=== PATIENT | female | born 1965 | race Caucasian/White ===

== ENCOUNTER 2016-11-19 15:28 | Inpatient (IN) | payer OTHER ==
[2016-11-19] MEDS ORDERED: Ondansetron 4 MG/2 ML SDV IVPUSH PRN (15:48)
[2016-11-19] MEDS ORDERED: Acetaminophen 650 MG Supp RECTAL PRN (15:48)
[2016-11-19] MEDS ORDERED: Naloxone 0.4 MG/ML SDV IV PRN (15:49)
[2016-11-19] MEDS ORDERED: Iohexol 300 MG/ML 30 ML Bottle PO ONE ×2 (15:55→16:19)
[2016-11-19] MEDS ORDERED: Iohexol 647 MG/ML 10 ML SDV PO ONE (16:45)
[2016-11-19] MEDS: HYDROmorphone/Normal Saline 15 MG/30 ML PCA IV PRN (17:15)
[2016-11-19] MEDS ORDERED: Sodium Chloride 0.9% 80 ML IV ONE (18:26)
[2016-11-19] MEDS ORDERED: Sodium Chloride 0.9% 10 ML Syringe FLUSH PRN (18:26)
[2016-11-19] MEDS ORDERED: Iopamidol 612 MG/ML 150 ML Bottle IV SCH (18:30)
[2016-11-19] MEDS: Pantoprazole 40 MG Vial IV SCH (20:32)
[2016-11-19] MEDS: DULoxetine 30 MG Cap PO SCH (20:33)
[2016-11-19] MEDS: Tamsulosin 0.4 MG Cap.ER PO SCH (20:33)
[2016-11-19] MEDS: Sennosides 8.6 MG Tab PO SCH (20:34)
[2016-11-19] MEDS: Temazepam 15 MG Cap PO PRN (20:42)
[2016-11-20] MEDS: Acetaminophen 325 MG Tab PO PRN (00:30)
[2016-11-20] MEDS: Dextrose 5%-Lactated Ringers 1,000 ML IV SCH ×2 (02:37→17:12)
[2016-11-20] MEDS: Tamsulosin 0.4 MG Cap.ER PO SCH ×2 (07:28→17:03)
[2016-11-20] MEDS: DULoxetine 30 MG Cap PO SCH ×3 (09:28→20:53)
--- NOTE | 2016-11-20 09:28 | PCM.HP ---
H&P History of Present Illness - General Date of Service: 11/20/16 Admit Problem/Dx: Admission Diagnosis/Problem Admission Diagnosis/Problem Abdominal pain Source of Information: Patient History Limitations: Reports: No limitations - History of Present Illness Initial Comments - Free Text/Narative: Karishma presented to the clinic with abdominal bloating and pressure and urinary retention. Pain had increased and she developed pressure under her right rib cage. A bladder scan was done in the clinic and she had 437 mls of urine after voiding. Onset of Symptoms: Reports: gradual Improves with: Reports: None Worsens with: Reports: None Associated Symptoms: Reports: denies other symptoms Right Lower Abdomen Pain Score (Numeric/FACES): 6 - Related Data Allergies/Adverse Reactions: Allergies Allergy/AdvReac Type Severity Reaction Status Date / Time ascorbic acid Allergy Cannot Verified 09/26/16 12:56 [From [employer] Remember (iron-vit c)] celecoxib [From Celebrex] Allergy Hives Verified 09/26/16 06:04 ferrous fumarate Allergy Cannot Verified 09/26/16 06:04 [From [employer] Remember (iron-vit c)] magnesium Allergy Cannot Verified 09/26/16 06:04 Remember Sulfa (Sulfonamide Allergy Hives Verified 09/26/16 06:04 Antibiotics) sulfadiazine Allergy Hives Verified 09/26/16 06:04 zolpidem AdvReac Insomnia Verified 09/26/16 07:23 Home Medications: Home Meds Cholecalciferol (Vitamin D3) [Vitamin D3] 2,000 unit PO DAILY 08/29/14 [History] Triazolam [Halcion] 0.25 mg PO BEDTIME PRN 08/29/14 [History] Cyanocobalamin (Vitamin B-12) [Vitamin B-12] 5,000 mcg CHEW DAILY 08/31/14 [ History] Magnesium Oxide [Magnesium] 400 mg PO DAILY #100 capsule 09/04/14 [Rx] Biotin 1 mg PO DAILY 09/23/16 [History] Folic Acid 400 mg PO DAILY 09/23/16 [History] Furosemide [Lasix] 20 mg PO DAILY PRN 09/23/16 [History] Pseudoephedrine [Sudafed 12 Hour] 120 mg PO .Q12 PRN 09/23/16 [History] Vitamin B Complex [B Complex] 100 mg PO DAILY 09/23/16 [History] hydrOXYzine HCl [hydrOXYzine] 25 mg PO .Q4 PRN 09/23/16 [History] Hydrocodone/Acetaminophen [Vicodin Es 7.5-300 mg Tablet] 2 each PO QID PRN 11/19 [History] Past Medical History HEENT History: Reports: None Gastrointestinal History: Reports: Bowel obstruction, Cholelithiasis, Chronic constipation Genitourinary History: Reports: None Musculoskeletal History: Reports: Arthritis Neurological History: Reports: Other (see below) Other Neuro History: 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 Endocrine/Metabolic History: Reports: Obesity/BMI 30+ Hematologic History: Reports: B12 deficiency, Blood transfusion(s), Iron deficiency Dermatologic History: Reports: None - Infectious Disease History Infectious Disease History: Reports: Chicken pox - Past Surgical History Head Surgeries/Procedures: Reports: None HEENT Surgical History: Reports: Oral surgery GI Surgical History: Reports: Bariatric procedure, Cholecystectomy, Colonoscopy , EGD, Hernia repair/other, Small bowel, Other (see below) Other GI Surgeries/Procedures: rny revision, fistula, bowel revision 2 years Female Surgical History: Reports: Oophorectomy, Tubal ligation Endocrine Surgical History: Reports: None Neurological Surgical History: Reports: C-Spine Musculoskeletal Surgical History: Reports: Shoulder surgery Other Musculoskeletal Surgeries/Procedures:: 4 back surgerys Dermatological Surgical History: Reports: None Social & Family History - Family History Family Medical History: Noncontributory - Tobacco Use Smoking Status *Q: Never Smoker Second Hand Smoke Exposure: No - Caffeine Use Caffeine Use: Reports: Tea - Alcohol Use Days Per Week of Alcohol Use: 0 - Recreational Drug Use Recreational Drug Use: No H&P Review of Systems - Review of Systems: Review Of Systems: See Below General: Reports: malaise, weakness, fatigue HEENT: Reports: no symptoms Pulmonary: Reports: No Symptoms Cardiovascular: Reports: no symptoms Gastrointestinal: Reports: Abdominal pain Genitourinary: Reports: retention Musculoskeletal: Reports: no symptoms Skin: Reports: no symptoms Psychiatric: Reports: no symptoms Neurological: Reports: No Symptoms Hematologic/Lymphatic: Reports: no symptoms Immunologic: Reports: no symptoms Exam - Exam Exam: See Below - Vital Signs Vital Signs: Last Vital Signs Temp 98.4 F 11/20/16 07:00 Pulse 99 11/20/16 07:00 Resp 18 04/06/17 07:00 BP 89/43 L 11/20/16 07:00 Pulse Ox 99 11/20/16 07:24 Weight: 194 lb 12.8 oz - Exam Quality Assessment: urinary catheter, DVT prophylaxis General: alert, oriented HEENT: PERRLA Neck: supple, trachea midline Lungs: Clear to auscultation, Normal respiratory effort Cardiovascular: regular rate, regular rhythm Abdomen: distention, guarding, rigidity, tenderness (Female) Exam: Deferred Back Exam: normal inspection Extremities: normal inspection Skin: warm, dry, intact Neurological: cranial nerves intact Neuro Extensive - Mental Status: alert, oriented x3, normal mood/affect Neuro Extensive - Motor, Sensory, Reflexes: CN II-XII intact Psychiatric: alert, normal affect, normal mood - Patient Data Lab Results last 24 hrs: Laboratory Results - last 24 hr 11/19/16 11/19/16 11/19/16 Range/Units 15:52 15:52 15:52 WBC 15.2 H (4.5-11.0) K/uL RBC 3.42 (3.30-5.50) M/uL Hgb 9.2 L (12.0-15.0) g/dL Hct 29.5 L (36.0-48.0) % MCV 86 (80-98) fL MCH 27 (27-31) pg MCHC 31 L (32-36) % Plt Count 940 H (150-400) K/uL Sodium 139 L (140-148) mmol/L Potassium 3.5 L (3.6-5.2) mmol/L Chloride 103 (100-108) mmol/L Carbon Dioxide 29 (21-32) mmol/L Anion Gap 10.5 (5.0-14.0) mmol/L BUN 10 D (7-18) mg/dL Creatinine 0.6 (0.6-1.0) mg/dL Est Cr Clr Drug Dosing 97.57 mL/min Estimated GFR (MDRD) > 60 (>60) Glucose 111 H (74-106) mg/dL Calcium 7.9 L (8.5-10.1) mg/dL Phosphorus 3.3 (2.5-4.9) mg/dL Magnesium 1.5 L (1.8-2.4) mg/dL Total Bilirubin 0.7 (0.2-1.0) mg/dL AST 19 (15-37) U/L ALT 22 (12-78) U/L Alkaline Phosphatase 254 H D (46-116) U/L Total Protein 6.2 L (6.4-8.2) g/dL Albumin 1.6 L (3.4-5.0) g/dL Globulin 4.6 H (2.3-3.5) g/dL Albumin/Globulin Ratio 0.4 L (1.2-2.2) Urine Color Urine Appearance Urine pH (4.5-8.0) Ur Specific [place] (1.008-1.030) Urine Protein (NEGATIVE) mg/dL Urine Glucose (UA) (NEGATIVE) mg/dL Urine Ketones (NEGATIVE) mg/dL Urine Occult Blood (NEGATIVE) Urine Nitrite (NEGATIVE) Urine Bilirubin (NEGATIVE) Urine Urobilinogen (NORMAL) mg/dL Ur Leukocyte Esterase (NEGATIVE) Urine RBC (0-5) Urine WBC (0-5) Ur Epithelial Cells Amorphous Sediment Urine Bacteria Urine Mucus 11/19/16 Range/Units 17:27 WBC (4.5-11.0) K/uL RBC (3.30-5.50) M/uL Hgb (12.0-15.0) g/dL Hct (36.0-48.0) % MCV (80-98) fL MCH (27-31) pg MCHC (32-36) % Plt Count (150-400) K/uL Sodium (140-148) mmol/L Potassium (3.6-5.2) mmol/L Chloride (100-108) mmol/L Carbon Dioxide (21-32) mmol/L Anion Gap (5.0-14.0) mmol/L BUN (7-18) mg/dL Creatinine (0.6-1.0) mg/dL Est Cr Clr Drug Dosing mL/min Estimated GFR (MDRD) (>60) Glucose (74-106) mg/dL Calcium (8.5-10.1) mg/dL Phosphorus (2.5-4.9) mg/dL Magnesium (1.8-2.4) mg/dL Total Bilirubin (0.2-1.0) mg/dL AST (15-37) U/L ALT (12-78) U/L Alkaline Phosphatase (46-116) U/L Total Protein (6.4-8.2) g/dL Albumin (3.4-5.0) g/dL Globulin (2.3-3.5) g/dL Albumin/Globulin Ratio (1.2-2.2) Urine Color Yellow Urine Appearance Slightly cloudy Urine pH 6.0 (4.5-8.0) Ur Specific [place] 1.020 (1.008-1.030) Urine Protein Negative (NEGATIVE) mg/dL Urine Glucose (UA) Normal (NEGATIVE) mg/dL Urine Ketones 15 H (NEGATIVE) mg/dL Urine Occult Blood Negative (NEGATIVE) Urine Nitrite Negative (NEGATIVE) Urine Bilirubin Small (NEGATIVE) Urine Urobilinogen 4 (NORMAL) mg/dL Ur Leukocyte Esterase Negative (NEGATIVE) Urine RBC 0-5 (0-5) Urine WBC 0-5 (0-5) Ur Epithelial Cells Moderate Amorphous Sediment Not seen Urine Bacteria Moderate Urine Mucus Numerous Result Diagrams: 11/19/16 15:52 11/19/16 15:52 *Q Meaningful Use (ADM) - VTE *Q VTE Criteria *Q: - Stroke *Q Stroke Criteria *Q: - AMI *Q AMI Criteria *Q: Problem List Initiated/Reviewed/Updated: Yes Orders Last 24hrs: Active Orders 24 hr Category Date Time Status Admission Status [Patient Status] [ADT] Routine ADT 11/19/16 15:49 Active Wallace Catheter Insertion [Insert Urinary Catheter] [OM. Care 11/19/16 16:00 Ordered PC] Q24H Intake and Output [RC] QSHIFT Care 11/19/16 15:55 Active Up ad Camille [RC] ASDIRECTED Care 11/19/16 15:51 Active Urinary Catheter Assessment [RC] ASDIRECTED Care 11/19/16 15:53 Active Verify Patient Consent Obtain [RC] ASDIRECTED Care 11/20/16 07:23 Active Vital Signs [RC] Q4H Care 11/19/16 15:51 Active NPO [Nothing Per Oral Diet] [DIET] Diet 11/19/16 Dinner Active Abdomen Pelvis w Cont [CT] Urgent Exams 11/19/16 15:54 Taken CULTURE URINE [RM] Routine Lab 11/19/16 17:27 Received Acetaminophen [Tylenol] Med 11/19/16 15:48 Active 650 mg PO Q4H PRN Acetaminophen [Tylenol] Med 11/19/16 15:48 Active 650 mg RECTAL Q4H PRN DULoxetine [Cymbalta] Med 11/19/16 21:00 Active 60 mg PO BID Dextrose 5%-Lactated Ringers 1,000 ml Med 11/19/16 16:00 Active IV ASDIRECTED Furosemide [Lasix] Med 11/20/16 09:00 Active 20 mg PO DAILY HYDROmorphone/Normal Saline [Dilaudid CONSTRUCTION SUPERVISOR 15 MG in NS Med 11/19/16 15:49 Active 30 ML] 0 mg IV ASDIRECTED PRN Meropenem [Merrem] 500 mg Med 11/20/16 13:00 Active Sodium Chloride 0.9% [Normal Saline] 50 ml IV ONETIME Naloxone [Narcan] Med 11/19/16 15:49 Active 0.1 mg IV ASDIRECTED PRN Nystatin [Mycostatin] Med 11/20/16 10:00 Active 5 ml PO QID Ondansetron [Zofran] Med 11/19/16 15:48 Active 4 mg IVPUSH Q4H PRN Pantoprazole [ProTONIX IV] Med 11/19/16 16:30 Active 40 mg IV Q24H Sennosides [Senna] Med 11/19/16 21:00 Active 8.6 mg PO BEDTIME Tamsulosin [Flomax] Med 11/19/16 17:30 Active 0.4 mg PO BIDPC Temazepam [Restoril] Med 11/19/16 16:09 Active 15 mg PO BEDTIME PRN Code Status [Resuscitation Status] Routine Resus Stat 11/19/16 15:50 Ordered Medication Orders Acetaminophen (Tylenol) 650 mg PO Q4H PRN PRN Reason: FEVER/ANALGESIA Last Admin: 11/20/16 00:30 Dose: 650 mg Acetaminophen (Tylenol) 650 mg RECTAL Q4H PRN PRN Reason: FEVER/ANALGESIA Duloxetine HCl (Cymbalta) 60 mg PO BID DANUTA Last Admin: 11/19/16 20:33 Dose: Not Given Furosemide (Lasix) 20 mg PO DAILY DANUTA Hydromorphone HCl (Dilaudid Foreclosure Specialist 15 Mg In Ns 30 Ml) 0 mg IV ASDIRECTED PRN; Protocol PRN Reason: CONSTRUCTION SUPERVISOR PAIN CONTROL Last Admin: 11/19/16 17:15 Dose: 15 mg Dextrose/Lactated Ringer's (Dextrose 5%-Lactated Ringers) 1,000 mls @ 100 mls/ hr IV ASDIRECTED DANUTA Last Admin: 11/20/16 02:37 Dose: 100 mls/hr Meropenem 500 mg/ Sodium (Chloride) 50 mls @ 100 mls/hr IV ONETIME ONE Stop: 11/20/16 13:29 Naloxone HCl (Narcan) 0.1 mg IV ASDIRECTED PRN PRN Reason: decreased respiratory rate Nystatin (Mycostatin) 5 ml PO QID DANUTA Ondansetron HCl (Zofran) 4 mg IVPUSH Q4H PRN PRN Reason: NAUSEA Last Admin: 11/20/16 00:35 Dose: 4 mg Pantoprazole Sodium (Protonix Iv) 40 mg IV Q24H [facility] Last Admin: 11/19/16 20:32 Dose: 40 mg Senna (Senna) 8.6 mg PO BEDTIME DANUAT Last Admin: 11/19/16 20:34 Dose: Not Given Tamsulosin HCl (Flomax) 0.4 mg PO BIDPC [facility] Last Admin: 11/20/16 07:28 Dose: 0.4 mg Admin: 11/19/16 20:33 Dose: 0.4 mg Temazepam (Restoril) 15 mg PO BEDTIME PRN PRN Reason: Insomnia Last Admin: 11/19/16 20:42 Dose: 15 mg Assessment/Plan Comment:: Urinary Retention Fluid Collection in Abdomen Plan: Diagnostic Laparotomy for Possible Small Bowel Resection - Today case to follow - General - Theo Mcintyre MD Meropenem 500 mg IV epic beacon specialists to OR Plan of hospitalization is at least 5 nights and 4 days Promise Pfeiffer
[2016-11-20] MEDS: Furosemide 20 MG Tab PO SCH (09:29)
[2016-11-20] MEDS: Nystatin Susp 100,000 Unit/ML 5 ML UD Cup PO SCH ×3 (09:29→21:12)
[2016-11-20] MEDS ORDERED: Succinylcholine/Normal Saline 200 MG/10 ML Syringe ONE (09:52)
[2016-11-20] MEDS ORDERED: Dexamethasone 4 MG/ML SDV ONE (09:52)
[2016-11-20] MEDS ORDERED: Ondansetron 4 MG/2 ML SDV ONE (09:52)
[2016-11-20] MEDS ORDERED: Rocuronium 50 MG/5 ML Vial ONE (09:52)
[2016-11-20] MEDS ORDERED: Neostigmine Methylsulfate 1 MG/ML 5 ML Syringe ONE (09:52)
[2016-11-20] MEDS ORDERED: fentaNYL 250 MCG/5 ML SDV ONE ×2 (09:52→11:05)
[2016-11-20] MEDS ORDERED: Nystatin Susp 100,000 Unit/ML 60 ML Bottle PO SCH (10:00)
[2016-11-20] MEDS ORDERED: Meropenem 500 MG SDV ONE (10:13)
[2016-11-20] MEDS ORDERED: Meropenem 500 MG in Sodium Chloride 0.9% 50 ML IV ONE ×2 (10:15→13:00)
[2016-11-20] MEDS ORDERED: fentaNYL 25 MCG/HR Transdermal Patch ONE (10:41)
[2016-11-20] MEDS: fentaNYL 25 MCG/HR Transdermal Patch TRDERM SCH (10:57)
[2016-11-20] MEDS ORDERED: Lactated Ringers 1,000 ML ONE (11:05)
[2016-11-20] MEDS ORDERED: Linezolid 200 MG/100 ML Bag IRR ONE (11:12)
[2016-11-20] MEDS ORDERED: fentaNYL 100 MCG/2 ML SDV ONE ×2 (11:16→11:37)
[2016-11-20] MEDS ORDERED: hydrOXYzine HCl 50 MG/ML SDV IM ONE (11:31)
[2016-11-20] MEDS: Linezolid 600 MG in Premix Bag 1 BAG IV SCH ×2 (11:37→23:23)
[2016-11-20] MEDS: VERIFY FENT PATCH TOP SCH ×2 (14:16→20:53)
[2016-11-20] MEDS: Pantoprazole 40 MG Vial IV SCH (17:03)
[2016-11-20] MEDS: HYDROmorphone/Normal Saline 15 MG/30 ML PCA IV PRN (19:53)
[2016-11-20] MEDS: Sennosides 8.6 MG Tab PO SCH (20:54)
[2016-11-20] MEDS: Temazepam 15 MG Cap PO PRN (21:22)
[2016-11-21] MEDS: Nystatin Susp 100,000 Unit/ML 5 ML UD Cup PO SCH ×4 (05:19→21:12)
[2016-11-21] MEDS: Fluconazole 100 MG Tab PO SCH (08:23)
[2016-11-21] MEDS: Furosemide 20 MG Tab PO SCH (08:23)
[2016-11-21] MEDS: Tamsulosin 0.4 MG Cap.ER PO SCH ×2 (08:23→18:20)
[2016-11-21] MEDS: VERIFY FENT PATCH TOP SCH ×2 (08:30→21:09)
[2016-11-21] MEDS ORDERED: Cyanocobalamin (Vitamin B12) 1,000 MCG/ML SDV IM ONE (09:00)
--- NOTE | 2016-11-21 09:28 | PN ---
DATE OF SERVICE: 11/21/2016 SUBJECTIVE: Karishma is postop day 1. She states her pain is controlled, and she states her pain is less than it was prior to surgery. Labs this morning; hemoglobin was 8.1, her magnesium was 1.4, and potassium was 3.6. REVIEW OF SYSTEMS: Remainder of review of systems negative for any pertinent positives and negatives. OBJECTIVE: GENERAL: Karishma Mcwilliams is a 51-year-old female. She is alert and orientated. VITAL SIGNS: TPR 96.5, 82, 18, blood pressure 115/63. HEENT: Negative. NECK: Supple. HEART: Regular rate and rhythm. LUNGS: Clear. ABDOMEN: Dressings dry and intact. She has 2 FLORENTIN drains that are draining a pink clear drainage, and they have put out 20 and 60 mL respectively. Wallace catheter remains in place at 2400. EXTREMITIES: Without peripheral edema and SCDs are on. ASSESSMENT: Exploratory laparotomy with drainage of possibly infected intraabdominal fluid collection related to organized hematuria and degenerating Vicryl mesh, and partial removal of intraperitoneal mesh. Date of surgery, 11/20/2016. PLAN: 1. Schedule and have consent signed for delayed primary closure on 11/22/2016, at 0700 hours. Theo Mcintyre MD, IV sedation. 2. Discontinue Cymbalta. 3. Add ferritin to already blood that was drawn. 4. LR with multivitamins. 5. Diflucan 100 mg daily p.o. Her magnesium is low, but she has an allergy to magnesium, and she does not know what that allergy was. So, we will check into her chart at the clinic as well as [facility]. Right now, we will hold the magnesium, but we will give banana bag with magnesium in and watch closely to see if there is any reaction. Good pulmonary toilet encouraged. 6. We will evaluate p.r.n. or in a.m. Promise Moran PA-C /[id number]
[2016-11-21] MEDS ORDERED: MVI, Adult with Vitamin K 10 ML, Thiamine 100 MG, Magnesium Sulfate 2 GM, Folic Acid 1 ... IV ONE ×5 (09:30)
[2016-11-21] MEDS: Linezolid 600 MG in Premix Bag 1 BAG IV SCH (10:46)
[2016-11-21] MEDS: fentaNYL 25 MCG/HR Transdermal Patch TRDERM SCH (12:35)
[2016-11-21] MEDS ORDERED: Magnesium Sulfate/Water 2 GM in Premix Bag 1 BAG IV SCH (17:00)
[2016-11-21] MEDS: Pantoprazole 40 MG Vial IV SCH (17:15)
[2016-11-21] MEDS: Dextrose 5%-Lactated Ringers 1,000 ML IV SCH (17:34)
[2016-11-21] MEDS: Sennosides 8.6 MG Tab PO SCH (21:09)
[2016-11-22] MEDS: Linezolid 600 MG in Premix Bag 1 BAG IV SCH ×3 (00:05→22:30)
[2016-11-22] MEDS: HYDROmorphone/Normal Saline 15 MG/30 ML PCA IV PRN (01:07)
[2016-11-22] MEDS: Temazepam 15 MG Cap PO PRN ×2 (01:21→22:19)
[2016-11-22] MEDS: Dextrose 5%-Lactated Ringers 1,000 ML IV SCH ×2 (05:31→12:26)
[2016-11-22] MEDS: Nystatin Susp 100,000 Unit/ML 5 ML UD Cup PO SCH ×4 (05:32→22:09)
[2016-11-22] MEDS ORDERED: Meropenem 500 MG SDV ONE (06:45)
[2016-11-22] MEDS ORDERED: Lidocaine 1% with EPINEPHrine 1:100,000 50 ML MDV ONE (06:45)
[2016-11-22] MEDS ORDERED: Bupivacaine 0.5% 50 ML MDV ONE (06:45)
[2016-11-22] MEDS ORDERED: Propofol 200 MG/20 ML SDV ONE ×2 (06:54→07:47)
[2016-11-22] MEDS ORDERED: Midazolam 1 MG/ML 2 ML SDV ONE (06:54)
[2016-11-22] MEDS: Fluconazole 100 MG Tab PO SCH (11:16)
[2016-11-22] MEDS: Tamsulosin 0.4 MG Cap.ER PO SCH ×2 (11:16→16:38)
[2016-11-22] MEDS: Furosemide 20 MG Tab PO SCH (11:16)
[2016-11-22] MEDS: VERIFY FENT PATCH TOP SCH ×2 (11:17→22:08)
[2016-11-22] MEDS: Magnesium Oxide 400 MG Tab PO SCH ×2 (11:17→22:09)
[2016-11-22] MEDS: Potassium Chloride 20 MEQ Tab.ER PO SCH ×3 (14:21→22:09)
[2016-11-22] MEDS: Pantoprazole 40 MG Vial IV SCH (16:36)
[2016-11-22] MEDS: Acetaminophen/HYDROcodone 325-7.5 MG Tab PO PRN ×2 (17:44→22:19)
[2016-11-22] MEDS: Sennosides 8.6 MG Tab PO SCH (22:07)
[2016-11-23] MEDS: Acetaminophen/HYDROcodone 325-7.5 MG Tab PO PRN ×6 (02:31→22:38)
[2016-11-23] MEDS: Dextrose 5%-Lactated Ringers 1,000 ML IV SCH (02:32)
[2016-11-23] MEDS: Nystatin Susp 100,000 Unit/ML 5 ML UD Cup PO SCH ×4 (05:38→21:53)
[2016-11-23] MEDS: Potassium Chloride 20 MEQ Tab.ER PO SCH ×3 (08:55→16:39)
[2016-11-23] MEDS: Tamsulosin 0.4 MG Cap.ER PO SCH ×2 (08:55→18:52)
[2016-11-23] MEDS: Furosemide 20 MG Tab PO SCH (08:56)
[2016-11-23] MEDS: Fluconazole 100 MG Tab PO SCH (08:56)
[2016-11-23] MEDS: fentaNYL 25 MCG/HR Transdermal Patch TRDERM SCH (08:57)
[2016-11-23] MEDS: Magnesium Oxide 400 MG Tab PO SCH ×2 (08:58→21:52)
[2016-11-23] MEDS ORDERED: Magnesium Citrate Solution 296 ML Bottle PO ONE (09:00)
[2016-11-23] MEDS: VERIFY FENT PATCH TOP SCH ×2 (09:00→21:52)
[2016-11-23] MEDS: Linezolid 600 MG in Premix Bag 1 BAG IV SCH ×2 (11:29→22:40)
[2016-11-23] MEDS ORDERED: Acetaminophen/oxyCODONE 325-10 MG Tab PO PRN (13:45)
[2016-11-23] MEDS: Pantoprazole 40 MG Tab.CR PO SCH (16:37)
[2016-11-23] MEDS: Sennosides 8.6 MG Tab PO SCH (21:53)
[2016-11-23] MEDS: Temazepam 15 MG Cap PO PRN (23:17)
[2016-11-24] MEDS: Acetaminophen/HYDROcodone 325-7.5 MG Tab PO PRN ×5 (02:30→19:51)
[2016-11-24] MEDS: Dextrose 5%-Lactated Ringers 1,000 ML IV SCH (02:34)
[2016-11-24] MEDS: Nystatin Susp 100,000 Unit/ML 5 ML UD Cup PO SCH ×3 (06:10→16:01)
[2016-11-24] MEDS: Albumin 25% 12.5 GM/50 ML BAG IV SCH ×4 (08:05→16:01)
[2016-11-24] MEDS: Tamsulosin 0.4 MG Cap.ER PO SCH ×2 (08:06→17:39)
--- NOTE | 2016-11-24 08:48 | PN ---
DATE OF SERVICE: 11/22/2016 The patient has been afebrile with stable vital signs. She underwent delayed primary closure of abdominal incision this morning and otherwise has tolerated some liquid diet yesterday. Magnesium is quite low, and we tried supplementing that with some IV, but she had a reaction in her vein to it, so will go with oral magnesium 400 mg b.i.d. Otherwise, go up to a regular diet today and discontinue the Wallace catheter. We will see how she does with regard to the urinary retention issue, after removal of the catheter. Theo Mcintyre MD /[id number]
[2016-11-24] MEDS ORDERED: Furosemide 20 MG Tab PO ONE (09:00)
[2016-11-24] MEDS: Magnesium Oxide 400 MG Tab PO SCH ×2 (09:05→20:18)
[2016-11-24] MEDS: Fluconazole 100 MG Tab PO SCH (09:05)
[2016-11-24] MEDS: VERIFY FENT PATCH TOP SCH ×2 (09:06→20:17)
[2016-11-24] MEDS: Furosemide 20 MG Tab PO SCH (09:14)
[2016-11-24] MEDS: Acetaminophen 325 MG Tab PO PRN (09:23)
--- NOTE | 2016-11-24 10:51 | PN ---
DATE OF SERVICE: 11/24/2016 SUBJECTIVE: Karishma did have a large bowel movement with 4 smaller ones. Her FLORENTIN drains are putting out 15, 45, 7, and 1 respectively. Her pain is controlled. She had a new fentanyl patch yesterday and stats that it made a big difference. She has been up ambulating. Reporting swelling in her upper thighs, calves, ankles, and feet. REVIEW OF SYSTEMS: Remainder of review of systems negative for any pertinent positives and negatives. OBJECTIVE: GENERAL: Karishma Mcwilliams is a 51-year-old female. She is alert and orientated. VITAL SIGNS: TPR 96.4, 99, 18, blood pressure 118/69. HEENT: Negative. NECK: Supple. HEART: Regular rate and rhythm. LUNGS: Clear. ABDOMEN: Occlusive Aquacel dressing is on. Abdomen is palpated as soft. FLORENTIN drains intact. EXTREMITIES: Reveal edema in thighs as well as calves, ankles, and feet. SCDs are on. ASSESSMENT: 1. Exploratory laparotomy with drainage of possible infected intraabdominal fluid collection related to organized hematuria and degenerating Vicryl mesh and partial removal of intraperitoneal mesh. Date of surgery 11/20/2016. 2. Delayed primary closure on 11/22/2016. PLAN: 1. Saline lock IV. 2. Lasix 20 mg one time. She already is on Lasix 20 mg daily. 3. Albumin 50 g today. 4. Plan discharge in a.. Promise Moran PA-C /[id number]
[2016-11-24] MEDS: Linezolid 600 MG in Premix Bag 1 BAG IV SCH (12:29)
--- NOTE | 2016-11-24 14:46 | OR ---
DATE OF PROCEDURE: 11/20/2016 PREOPERATIVE DIAGNOSIS: Large intraabdominal fluid collection with associated marked abdominal pain. POSTOPERATIVE DIAGNOSES: 1. Probably infected intraabdominal fluid collection related to organized hematoma. 2. Degenerating Vicryl mesh. OPERATIVE PROCEDURE: Exploratory laparotomy with drainage of probably infected intraabdominal fluid collection related to organized hematoma (39225) and the partial removal of a degenerating intraperitoneal mesh ([id number]). ANESTHESIA: General. PROGRAMMING ENGINEER: Promise Moran PA-C. INDICATIONS FOR PROCEDURE: The patient presented yesterday to the clinic with marked abdominal distention, primarily in the lower abdomen, along with abdominal pain and ongoing urinary retention. The patient was admitted and a CT scan showed a large fluid collection located in the lower abdomen and pelvis and extending up into the right mid abdomen. The plan is to proceed with an exploratory laparotomy, with drainage of that fluid, and other procedures as indicated including possible bowel resection, closure of any GI tract fistulas, also removal of an intraperitoneal mesh were all reviewed with the patient and she wishes to proceed. DETAILS OF PROCEDURE: The patient was taken to the operating room. After general endotracheal anesthesia was induced, the abdomen was prepped and draped. A Wallace catheter had already been placed last evening. A lower midline incision was made and this eventually extended roughly penitentiary up to the xiphoid and it was carried down through the skin and subcutaneous tissue and fascial layers. Upon entering the peritoneal cavity, a brown tinged fluid was evacuated. The cultures of this were obtained. Gram-stains of which showed some rare gram-positive cocci, although fluid did not appear to be obviously infected in terms of its appearance or odor. There was some degenerating organized hematoma present and one suspect this was a combination of reactive process from a postop hematoma and possibly associated Vicryl mesh. Some of the Vicryl mesh, which was used to avoid recurrent adhesion formation, was degenerating, and this was removed as well to limit recurrent inflammatory response. There was no evidence of any visceral leak and the remaining visceral content at this point were covered with a thin layer of early scar-type formation. The abdomen was then irrigated with a meropenem-containing saline solution. Upon receipt of the Gram-stain result, Zyvox was also added to the irrigation. Two Tristen-Weiss drains were then placed in the right midabdomen and one placed up in the right upper quadrant, one in the pelvis. The midline fascia was then reapproximated with #2 Vicryl stitch. Given the Gram-stain results, the patient was felt to be high risk for wound infection. Final closure was undertaken. Given this, the incision was packed open at the skin and subcutaneous tissue level for to plan a delayed primary closure in 48 hours. The patient was taken to the recovery room in satisfactory condition. Physician sales service assistant, Promise Moran, played an essential role in assisting in this case, helping to position the patient, retract structures as indicated as well as suturing and cutting sutures when indicated. Her presence improved the patient's safety and decreased the operative time. Theo Mcintyre MD /[id number]
--- NOTE | 2016-11-24 15:43 | OR ---
DATE OF PROCEDURE: 11/22/2016 PREOPERATIVE DIAGNOSIS: Open abdominal incision. POSTOPERATIVE DIAGNOSIS: Open abdominal incision. OPERATIVE PROCEDURE: Delayed primary closure of open abdominal incision. ANESTHESIA: IV sedation. INDICATIONS FOR PROCEDURE: This is a 51-year-old status post drainage of an infected stoma in her lower abdomen. Given the findings, the skin and subcutaneous tissue were felt to be at high risk for wound infection. Primary closure was undertaken. Given this, the skin and subcu tissues were packed open and planned delayed primary closure was scheduled for this point, potential risks of the procedure including bleeding and infection were reviewed, and the patient wishes to proceed. DETAILS OF PROCEDURE: The patient was taken to the operating room and placed in a supine position. IV sedation was administered, after which the operative dressing was taken down. The incision inspected and found to be clean. The incision was then prepped and draped, anesthetized with 1% lidocaine mixed with Marcaine and irrigated with a meropenem-containing saline solution. A 10-Hebrew round Tristen-Weiss drain was then placed inferior to the incision and the incision then closed with a total of 3 layers of 3-0 and 4-0 Vicryl stitch deep and then paola for the skin. Dressing was applied. The drain was sutured 3-0 Vicryl stitch and the patient was taken to the recovery room in satisfactory condition. Theo Mcintyre MD /[id number]
[2016-11-24] MEDS: Pantoprazole 40 MG Tab.CR PO SCH (16:00)
[2016-11-24] MEDS: Sennosides 8.6 MG Tab PO SCH (20:17)
[2016-11-25] MEDS: Linezolid 600 MG in Premix Bag 1 BAG IV SCH (00:01)
[2016-11-25] MEDS: Acetaminophen/HYDROcodone 325-7.5 MG Tab PO PRN ×6 (00:08→20:57)
[2016-11-25] MEDS: Temazepam 15 MG Cap PO PRN ×2 (00:08→21:02)
[2016-11-25] MEDS: Nystatin Susp 100,000 Unit/ML 5 ML UD Cup PO SCH ×5 (06:05→20:59)
[2016-11-25] MEDS ORDERED: Ondansetron 4 MG Tab.DIS PO PRN (08:26)
[2016-11-25] MEDS: VERIFY FENT PATCH TOP SCH ×2 (08:45→20:59)
[2016-11-25] MEDS: Furosemide 20 MG Tab PO SCH (08:47)
[2016-11-25] MEDS: Tamsulosin 0.4 MG Cap.ER PO SCH ×2 (08:47→17:15)
[2016-11-25] MEDS: Fluconazole 100 MG Tab PO SCH (08:47)
[2016-11-25] MEDS: Magnesium Oxide 400 MG Tab PO SCH ×2 (08:47→20:57)
[2016-11-25] MEDS ORDERED: Non-Formulary Medication 1 Each (Magnesium Oxide [Magnesium] 400 MG) PO SCH (09:00)
--- NOTE | 2016-11-25 09:01 | PN ---
DATE OF SERVICE: 11/25/2016 SUBJECTIVE: Karishma states she did not have a very good day, yesterday, she felt weak. Oral intake was decreased to 760. The day before she had 2460. She did have 3 bowel movements. FLORENTIN drains have put out 18 and 1 respectively of a pink serous drainage. Pain is controlled. REVIEW OF SYSTEMS: Remainder of review of systems negative for any pertinent positives and negatives. OBJECTIVE: GENERAL: Karishma Mcwilliams is a 51-year-old female, alert, and orientated. VITAL SIGNS: TPR is 98.2, 106, 16, blood pressure 123/74. HEENT: Negative. NECK: Supple. HEART: Regular rate and rhythm. LUNGS: Clear. ABDOMEN: Incision looks good. Abdominal binder is on. EXTREMITIES: Without peripheral edema. ASSESSMENT: 1. Exploratory laparotomy with drainage of possible infected intraabdominal fluid collection related to the organized hematoma and degenerating Vicryl mesh and partial removal of intraperitoneal mesh. Date of surgery 11/20/2016. 2. Delayed primary closure on 11/22/2016. PLAN: 1. Doxycycline 100 mg b.i.d. 2. Discontinue IV antibiotic. 3. Discontinue FLORENTIN drains 1 and 2. 4. Multivitamin bag IV. 5. Occlusive dressing off, may shower. 6. We will evaluate p.r.n. or in a.m. Promise Moran PA-C /[id number]
[2016-11-25] MEDS: Albumin 25% 12.5 GM in Premix Bag 1 BAG IV SCH ×4 (09:23→17:16)
[2016-11-25] MEDS: Doxycycline 100 MG Cap PO SCH ×2 (09:27→17:15)
[2016-11-25] MEDS ORDERED: MVI, Adult with Vitamin K 10 ML, Thiamine 100 MG, Magnesium Sulfate 2 GM, Folic Acid 1 ... IV ONE ×5 (09:30)
--- NOTE | 2016-11-25 12:07 | PN ---
DATE OF SERVICE: 11/23/2016 The patient has been afebrile with stable vital signs. Her oral intake has been quite good. She is passing some gas, no bowel movement as of yet. Potassium remains marginally low, and we will give her some additional oral potassium today, otherwise, some bowel stimulation. Nothing more has grown out of the cultures. We will continue present antibiotics and maximize activity and work with pulmonary toilet. I think we will continue the present pain management for today. Theo Mcintyre MD /[id number]
[2016-11-25] MEDS: Acetaminophen 325 MG Tab PO PRN (14:47)
[2016-11-25] MEDS: Pantoprazole 40 MG Tab.CR PO SCH (17:15)
[2016-11-25] MEDS: Sennosides 8.6 MG Tab PO SCH (20:57)
[2016-11-26] MEDS: Acetaminophen/HYDROcodone 325-7.5 MG Tab PO PRN ×4 (01:04→14:09)
[2016-11-26] MEDS: Nystatin Susp 100,000 Unit/ML 5 ML UD Cup PO SCH ×2 (05:23→10:27)
[2016-11-26 06:53] VITALS: BP 116/58
[2016-11-26] MEDS ORDERED: Cyanocobalamin (Vitamin B12) 1,000 MCG/ML SDV IM ONE (08:45)
[2016-11-26] MEDS ORDERED: MVI, Adult with Vitamin K 10 ML, Thiamine 100 MG, Magnesium Sulfate 2 GM, Folic Acid 1 ... IV ONE ×5 (09:30)
[2016-11-26] MEDS: fentaNYL 25 MCG/HR Transdermal Patch TRDERM SCH (10:25)
[2016-11-26] MEDS: Furosemide 20 MG Tab PO SCH (10:26)
[2016-11-26] MEDS: Tamsulosin 0.4 MG Cap.ER PO SCH (10:26)
[2016-11-26] MEDS: Fluconazole 100 MG Tab PO SCH (10:26)
[2016-11-26] MEDS: Magnesium Oxide 400 MG Tab PO SCH (10:26)
[2016-11-26] MEDS: VERIFY FENT PATCH TOP SCH (10:26)
[2016-11-26] MEDS: Doxycycline 100 MG Cap PO SCH (10:26)
--- NOTE | 2016-11-27 01:05 | DISCH ---
ADMISSION DIAGNOSES: Abdominal pain, urinary retention. DISCHARGE DIAGNOSES: 1. Exploratory laparotomy with drainage of probably infected intraabdominal fluid collection related to organized hematoma and partial removal of degenerating intraperitoneal mesh for large intraabdominal fluid collection with associated marked abdominal pain on 11/20/2016. 2. Delayed primary closure for open abdominal incision on 11/22/2016. HISTORY: Karishma Mcwilliams is a 51-year-old female who presented to the clinic for an appointment and she had marked abdominal distention primarily in the lower abdomen with abdominal pain and ongoing urinary retention. A CT showed large fluid collection located in the lower abdomen and pelvis and extending up into the right mid abdomen. After preoperative evaluation and discussion of possible risks and possible complications, she wished to proceed with surgical procedure. HOSPITAL COURSE: Karishma had her surgery on 11/20/2016. She had delayed primary closure on 11/22/2016. She had no operative complications. Throughout her hospital stay, her pain was managed. She was having normal bowel movements. She was advanced to a step 4 gastric bypass diet. Vital signs were stable. Activity was good. She was able to be discharged to home without any difficulties. OBJECTIVE: GENERAL: Karishma Mcwilliams is a 51-year-old female. She is alert, orientated. SKIN: Warm and dry. Color is good. VITAL SIGNS: Height 5 feet 5 inches. Weight is 194 pounds. TPR is 98, 102, 16. Blood pressure 116/58. HEENT: Negative. NECK: Supple. HEART: Regular rate and rhythm. LUNGS: Clear. ABDOMEN: Trappe in place. 4x4s over FLORENTIN drain sites. Abdominal binder has been on. EXTREMITIES: Without peripheral edema. DISPOSITION: Discharged to home. CONDITION: Stable and improving. FOLLOWUP APPOINTMENT: With Promise Moran PA-C on 12/04/2016 at 9:30 a.m. HOME MEDICATIONS: Vicodin ES 7.5/300 1-2 tabs every 4 hours p.r.n. pain #50, doxycycline 100 mg oral twice daily before meals #14, Diflucan 100 mg daily #7, magnesium oxide 400 mg twice daily for 1 month, Nystatin 5 mL oral 4 times a day, Duragesic 25 mcg patch every 72 hours #3 patches were given, next patch is due on Thursday11/30/2016. She is to start Flomax 0.4 mg b.i.d. for 1 month. Continue taking biotin 1 mg oral daily, vitamin D3 2000 international units daily, vitamin B12 5000 mcg daily, folic acid 400 mg daily, Lasix 20 mg daily, Sudafed 125 mg every 12 hours, Halcion 0.25 mg at bedtime, vitamin B complex 100 mg daily. DIET AFTER DISCHARGE: Drink 8 to 10 glasses of water a day, step 4 gastric bypass diet. ACTIVITY: No lifting greater than 10 pounds for 6 weeks. Other activity, walk inside your home 8 times daily. Driving after discharge, do not drive on pain medication. May shower. Notify provider if fever, increased pain, nausea, or vomiting. Wound incision care, keep site clean and dry. Wear abdominal binder for 6 weeks and then as tolerated. SPECIAL INSTRUCTION: Use incentive spirometer 10 times every hour while awake.
== END 2016-11-26 15:20 | disposition home or self-care (01) | DRG 941 ==
LOC: JP.2SS 15:28
PROVIDERS: ADMIT Surgery; ATTEND Surgery
PROC: 0WPF0JZ Removal of Synthetic Substitute from Abdominal Wall, Open Approach (ICD-10-PCS; principal; 2016-11-20)
PROC: 0W9G00Z Drainage of Peritoneal Cavity with Drainage Device, Open Approach (ICD-10-PCS; principal; 2016-11-20)
PROC: 0WQF0ZZ Repair Abdominal Wall, Open Approach (ICD-10-PCS; 2016-11-22)
DX: R18.8 Other ascites (principal); R33.9 Retention of urine, unspecified; E53.8 Deficiency of other specified B group vitamins; E66.9 Obesity, unspecified; Z68.30 Body mass index [BMI] 30.0-30.9, adult; Z88.2 Allergy status to sulfonamides; Z88.8 Allergy status to other drugs, medicaments and biological substances; R29.2 Abnormal reflex; M19.90 Unspecified osteoarthritis, unspecified site; Z98.84 Bariatric surgery status; E83.42 Hypomagnesemia; D50.9 Iron deficiency anemia, unspecified
CPT/HCPCS: 36415; 74177; 80048; 80053; 81001; 82728; 83735; 84100; 85027; 87070; 87075; 87086; 87205; 88304; 94762; A9270-GY; C9113; J1100; J1170; J2020; J2185; J2250; J2405; J2704; J3010; J3410; J3411; J3420; J3475; J3490; J7030; J7042; J7050; J7120; P9047

== ENCOUNTER 2017-03-29 18:46 | Inpatient (IN) | payer OTHER ==
[2017-03-29] MEDS ORDERED: Sodium Chloride 0.9% 10 ML Syringe FLUSH PRN (20:23)
[2017-03-29] MEDS ORDERED: Lactated Ringers 1,000 ML IV SCH (20:30)
--- NOTE | 2017-03-29 20:39 | EDM.PDOC ---
ED HPI GENERAL MEDICAL PROBLEM - General Chief Complaint: General Stated Complaint: NOT EATING OR DRINKING/SHAKES Time Seen by Provider: 03/29/17 19:30 Source of Information: Reports: Patient, Family History Limitations: Reports: No Limitations - History of Present Illness INITIAL COMMENTS - FREE TEXT/NARRATIVE: Karishma presents today with complaints of generalized weakness, anorexia, nausea, dry heaves and fall x two in the past 7 to 10 days. Onset: Gradual Onset Date: 03/22/17 Duration: Day(s): Quality: Reports: Ache, Other (Chronic back pain, new onset hip pain since falls x 2. ) Severity: Moderate Improves with: Reports: None Worsens with: Reports: Movement Context: Reports: Other (Patient reports falls from generalized weakness x 2 the past 7 to 10 days. ) Associated Symptoms: Reports: Confusion, Malaise, Nausea/Vomiting, Weakness, Other (anorexia complaints. She denies fever, head injury, inability to ambulate due to pain. ) lower back Pain Score (Numeric/FACES): 2 - Related Data Allergies Allergy/AdvReac Type Severity Reaction Status Date / Time ascorbic acid Allergy Cannot Verified 03/29/17 21:59 [From [employer] Remember (iron-vit c)] celecoxib [From Celebrex] Allergy Hives Verified 03/29/17 21:59 ferrous fumarate Allergy Cannot Verified 03/29/17 21:59 [From [employer] Remember (iron-vit c)] Sulfa (Sulfonamide Allergy Hives Verified 03/29/17 21:59 Antibiotics) sulfadiazine Allergy Hives Verified 03/29/17 21:59 zolpidem AdvReac Insomnia Verified 03/29/17 21:59 Home Meds: Home Meds Triazolam [Halcion] 0.25 mg PO BEDTIME PRN 08/29/14 [History] Biotin 1 mg PO DAILY 09/23/16 [History] Folic Acid 400 mg PO DAILY 09/23/16 [History] Furosemide [Lasix] 20 mg PO DAILY PRN 09/23/16 [History] Pseudoephedrine [Sudafed 12 Hour] 120 mg PO .Q12 PRN 09/23/16 [History] hydrOXYzine HCl [hydrOXYzine] 25 mg PO .Q4 PRN 09/23/16 [History] Hydrocodone/Acetaminophen [Vicodin Es 7.5-300 mg Tablet] 1 - 2 each PO Q4HR PRN #50 tablet 11/26/16 [Rx] DULoxetine [Cymbalta] 60 mg PO BID 03/29/17 [History] Magnesium Oxide 400 mg PO TID 03/29/17 [History] Past Medical History HEENT History: Reports: Impaired Vision Cardiovascular History: Reports: None Respiratory History: Reports: None Gastrointestinal History: Reports: Bowel Obstruction, Cholelithiasis, Chronic Constipation Genitourinary History: Reports: None [employer] History: Reports: None Musculoskeletal History: Reports: Arthritis, Back Pain, Chronic, Neck Pain, Chronic Neurological History: Reports: None Other Neuro History: 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 Psychiatric History: Reports: Anxiety, Depression Endocrine/Metabolic History: Reports: Obesity/BMI 30+ Hematologic History: Reports: B12 Deficiency, Blood Transfusion(s), Iron Deficiency Immunologic History: Reports: None Oncologic (Cancer) History: Reports: None Dermatologic History: Reports: Other (See Below) Other Dermatologic History: sores on hands and arms that are slow to heal - Infectious Disease History Infectious Disease History: Reports: None - Past Surgical History Head Surgeries/Procedures: Reports: None HEENT Surgical History: Reports: Oral Surgery Cardiovascular Surgical History: Reports: None Respiratory Surgical History: Reports: None GI Surgical History: Reports: Bariatric Procedure, Cholecystectomy, Colonoscopy , EGD, Hernia Repair/Other, Small Bowel, Other (See Below) Other GI Surgeries/Procedures: mesh rejection from small bowel obstruction, mesh removel and blood clot found Female Surgical History: Reports: Oophorectomy, Tubal Ligation Endocrine Surgical History: Reports: None Neurological Surgical History: Reports: Lumbar Spine, Spinal Fusion, Other (See Below) Other Neurological Surgeries/Procedures: benign spinal tumor removed Musculoskeletal Surgical History: Reports: Shoulder Surgery Oncologic Surgical History: Reports: None Dermatological Surgical History: Reports: None Social & Family History - Family History Family Medical History: Noncontributory - Tobacco Use Smoking Status *Q: Never Smoker Second Hand Smoke Exposure: No - Caffeine Use Caffeine Use: Reports: None - Alcohol Use Days Per Week of Alcohol Use: 0 - Recreational Drug Use Recreational Drug Use: No ED ROS GENERAL - Review of Systems Review Of Systems: See Below Constitutional: Reports: Chills, Malaise, Weakness, Fatigue, Other (anorexia). Denies: Fever HEENT: Denies: Ear Pain, Eye Pain, Hearing Loss, Sinus Problem, Throat Pain, Throat Swelling, Vertigo, Vision Change Respiratory: Denies: Shortness of Breath, Wheezing, Pleuritic Chest Pain, Cough , Sputum, Hemoptysis Cardiovascular: Reports: Edema, Lightheadedness. Denies: Chest Pain, Blood Pressure Problem, Claudication, Dyspnea on Exertion, Orthopnea, Palpitations, PND, Syncope Endocrine: Reports: Fatigue. Denies: Polydypsia, Polyuria GI/Abdominal: Reports: Anorexia, Constipation, Diarrhea, Difficulty Swallowing, Flatus, Nausea. Denies: Abdominal Pain, Black Stool, Bloody Stool, Distension, Hematemesis, Hematochezia, Vomiting : Denies: Discharge, Flank Pain, Frequency, Hematuria, Incontinence, Urgency, Urinary Retention Musculoskeletal: Reports: Other (She complains of chronic mid to upper back pain.). Denies: Joint Pain, Joint Swelling, Muscle Pain, Muscle Stiffness Skin: Reports: Wound, Other (several wounds to bilateral upper arms, dried scabs with surrounding redness noted. Patient reports wounds have been present for many months without improvement. ) Neurological: Reports: Confusion, Difficulty Walking, Weakness. Denies: Dizziness, Headache, Numbness, Paresthesia, Seizure, Syncope, Tingling, Tremors , Trouble Speaking, Gait Disturbance Psychiatric: Reports: No Symptoms Hematologic/Lymphatic: Reports: No Symptoms Immunologic: Reports: No Symptoms ED EXAM, GENERAL - Physical Exam Exam: See Below Exam Limited By: No Limitations General Appearance: Alert, WD/WN, Moderate Distress, Other (Pale, malnourished appearance to face. ) Eye Exam: Bilateral Eye: EOMI, PERRL Ears: Normal External Exam, Normal Canal, Hearing Grossly Normal, Normal TMs Ear Exam: Bilateral Ear: Auricle Normal, Canal Normal, TM normal Nose: Normal Inspection, Normal Mucosa, No Blood Throat/Mouth: Normal Oropharynx, Normal Voice, No Airway Compromise, Other (dry mucus membranes) Head: Atraumatic, Normocephalic. No: Facial Swelling, Facial Tenderness, Sinus Tenderness Neck: Normal Inspection, Supple, Non-Tender, Full Range of Motion. No: Lymphadenopathy (R), Lymphadenopathy (L) Respiratory/Chest: No Respiratory Distress, Lungs Clear, Normal Breath Sounds, No Accessory Muscle Use, Chest Non-Tender Cardiovascular: Normal Peripheral Pulses, Regular Rate, Rhythm, No Murmur, No Rub, Other (3+ edema bilateral lower extremities from feet to knees. ) Peripheral Pulses: 2+: Brachial (L), Brachial (R), Dorsalis Pedis (L), Dorsalis Pedis (R) GI/Abdominal: Soft, Non-Tender, No Organomegaly, No Distention, No Mass, Other ( hypoactive bowel sounds. ) Back Exam: Normal Inspection, Full Range of Motion. No: CVA Tenderness (R), CVA Tenderness (L), Muscle Spasm, Paraspinal Tenderness, Vertebral Tenderness Extremities: Normal Range of Motion, Non-Tender, Normal Capillary Refill, Pedal Edema, Redness, Other. No: Joint Swelling, Arm Pain, Leg Pain Neurological: Alert, Oriented, CN II-XII Intact, Normal Cognition, Normal Gait, No Motor/Sensory Deficits Psychiatric: Normal Affect, Flat Affect Skin Exam: Warm, Dry, Wound/Incision, Other (Several dried scabbed areas to forearms, no erythema or fluctuance noted. ) Lymphatic: No Adenopathy EKG INTERPRETATION EKG Date: 03/29/17 Time: 20:28 Rhythm: NSR [place]: Normal P-Wave: Present QRS: Normal ST-T: Normal QT: Normal EKG Interpretation Comments: When compared to EKG from 08/23/14, flipped T's noted in V2, V3. Course - Vital Signs Last Recorded V/S: Last Vital Signs Temp 36.7 C 03/29/17 19:47 Pulse 89 03/29/17 19:47 Resp 16 03/29/17 19:47 BP 139/87 03/29/17 19:47 Pulse Ox 94 L 03/29/17 19:47 - Orders/Labs/Meds Orders: Active Orders 24 hr Category Date Time Status EKG Documentation Completion [RC] ASDIRECTED Care 03/29/17 20:24 Active Lactated Ringers [Ringers, Lactated] 1,000 ml Med 03/29/17 20:30 Active IV ASDIRECTED Magnesium Sulfate/Water [Magnesium Sulfate 2 GM in Med 03/29/17 22:03 Active Water 50 ML] 2 gm Premix Bag 1 bag IV ONETIME Sodium Chloride 0.9% [Saline Flush] Med 03/29/17 20:23 Active 10 ml FLUSH ASDIRECTED PRN Saline Lock Insert [OM.PC] Routine Oth 03/29/17 20:23 Ordered EKG 12 Lead [EK] Routine Ther 03/29/17 20:23 Ordered Medication Orders Lactated Ringer's (Ringers, Lactated) 1,000 mls @ 500 mls/hr IV ASDIRECTED DANUTA Last Admin: 03/29/17 21:34 Dose: 500 mls/hr Magnesium Sulfate 2 gm/ Premix 50 mls @ 12.5 mls/hr IV ONETIME ONE Stop: 03/30/17 02:02 Last Admin: 03/29/17 22:25 Dose: 12.5 mls/hr Sodium Chloride (Saline Flush) 10 ml FLUSH ASDIRECTED PRN PRN Reason: Keep Vein Open Last Admin: 03/29/17 21:34 Dose: 10 ml Labs: Laboratory Tests 03/29/17 03/29/17 03/29/17 Range/Units 20:23 20:43 20:43 WBC 7.5 (4.5-11.0) K/uL RBC 3.42 (3.30-5.50) M/uL Hgb 12.0 D (12.0-15.0) g/dL Hct 37.5 (36.0-48.0) % MCV 110 H (80-98) fL MCH 35 H (27-31) pg MCHC 32 (32-36) % Plt Count 313 (150-400) K/uL Neut % (Auto) 68 H (36-66) % Lymph % (Auto) 25 (24-44) % [place] % (Auto) 6 (2-6) % Eos % (Auto) 0 L (2-4) % Baso % (Auto) 1 (0-1) % Sodium 145 (140-148) mmol/L Potassium 4.6 (3.6-5.2) mmol/L Chloride 106 (100-108) mmol/L Carbon Dioxide 28 (21-32) mmol/L Anion Gap 11.5 (5.0-14.0) mmol/L BUN 9 (7-18) mg/dL Creatinine 1.1 H (0.6-1.0) mg/dL Est Cr Clr Drug Dosing 53.22 mL/min Estimated GFR (MDRD) 52 L (>60) Glucose 89 (74-106) mg/dL Calcium 8.1 L (8.5-10.1) mg/dL Magnesium 1.3 L (1.8-2.4) mg/dL Total Bilirubin 3.0 H D (0.2-1.0) mg/dL AST 52 H D (15-37) U/L ALT 53 D (12-78) U/L Alkaline Phosphatase 129 H (46-116) U/L Total Protein 5.3 L (6.4-8.2) g/dL Albumin 1.7 L (3.4-5.0) g/dL Globulin 3.6 H (2.3-3.5) g/dL Albumin/Globulin Ratio 0.5 L (1.2-2.2) TSH, Ultra Sensitive (0.358-3.740) uIU/mL Urine Color [place] Urine Appearance Cloudy Urine pH 5.0 (4.5-8.0) Ur Specific [place] 1.025 (1.008-1.030) Urine Protein Trace (NEGATIVE) mg/dL Urine Glucose (UA) Normal (NEGATIVE) mg/dL Urine Ketones 15 H (NEGATIVE) mg/dL Urine Occult Blood Negative (NEGATIVE) Urine Nitrite Negative (NEGATIVE) Urine Bilirubin Moderate (NEGATIVE) Urine Urobilinogen >=12 H (NORMAL) mg/dL Ur Leukocyte Esterase Small (NEGATIVE) Urine RBC 0-5 (0-5) Urine WBC 5-10 H (0-5) Ur Epithelial Cells Moderate Amorphous Sediment Few Urine Bacteria Few Urine Mucus Moderate Urine Other See note 03/29/17 Range/Units 20:43 WBC (4.5-11.0) K/uL RBC (3.30-5.50) M/uL Hgb (12.0-15.0) g/dL Hct (36.0-48.0) % MCV (80-98) fL MCH (27-31) pg MCHC (32-36) % Plt Count (150-400) K/uL Neut % (Auto) (36-66) % Lymph % (Auto) (24-44) % [place] % (Auto) (2-6) % Eos % (Auto) (2-4) % Baso % (Auto) (0-1) % Sodium (140-148) mmol/L Potassium (3.6-5.2) mmol/L Chloride (100-108) mmol/L Carbon Dioxide (21-32) mmol/L Anion Gap (5.0-14.0) mmol/L BUN (7-18) mg/dL Creatinine (0.6-1.0) mg/dL Est Cr Clr Drug Dosing mL/min Estimated GFR (MDRD) (>60) Glucose (74-106) mg/dL Calcium (8.5-10.1) mg/dL Magnesium (1.8-2.4) mg/dL Total Bilirubin (0.2-1.0) mg/dL AST (15-37) U/L ALT (12-78) U/L Alkaline Phosphatase (46-116) U/L Total Protein (6.4-8.2) g/dL Albumin (3.4-5.0) g/dL Globulin (2.3-3.5) g/dL Albumin/Globulin Ratio (1.2-2.2) TSH, Ultra Sensitive 2.151 (0.358-3.740) uIU/mL Urine Color Urine Appearance Urine pH (4.5-8.0) Ur Specific [place] (1.008-1.030) Urine Protein (NEGATIVE) mg/dL Urine Glucose (UA) (NEGATIVE) mg/dL Urine Ketones (NEGATIVE) mg/dL Urine Occult Blood (NEGATIVE) Urine Nitrite (NEGATIVE) Urine Bilirubin (NEGATIVE) Urine Urobilinogen (NORMAL) mg/dL Ur Leukocyte Esterase (NEGATIVE) Urine RBC (0-5) Urine WBC (0-5) Ur Epithelial Cells Amorphous Sediment Urine Bacteria Urine Mucus Urine Other Meds: Medications Generic Name Dose Route Start Last Admin Trade Name Freq PRN Reason Stop Dose Admin Lactated Ringer's 1,000 mls @ 500 mls/hr 03/29/17 20:30 03/29/17 21:34 Ringers, Lactated IV 500 mls/hr ASDIRECTED DANUTA Administration Magnesium Sulfate 2 gm/ Premix 50 mls @ 12.5 mls/hr 03/29/17 22:03 03/29/17 22:25 IV 03/30/17 02:02 12.5 mls/hr ONETIME ONE Administration Sodium Chloride 10 ml 03/29/17 20:23 03/29/17 21:34 Saline Flush FLUSH 10 ml ASDIRECTED PRN Administration Keep Vein Open - Re-Assessments/Exams Free Text/Narrative Re-Assessment/Exam: 03/29/17 20:51 Discussed lack of oral intake and nutrition with past two falls with patient and her . They were offered imaging and declined at this time. Patient does have a history of nerve damage and lack of pain sensation to left side of body per her report. Lab work pending. Free Text/Narrative Re-Assessment/Exam: 03/29/17 22:23 Patient case discussed with Dr. Jesenia Mcintyre, she will be admitted as inpatient for anorexia, dehydration, weakness, edema, hypomagnesemia. Departure - Departure Time of Disposition: 22:24 Disposition: Admitted As Inpatient 64 Condition: Poor Clinical Impression: Anorexia, Dehydration, Weakness, Hypomagnesemia, Edema, Nausea - Discharge Information Referrals: Yusuf Casper MD [Primary Care Provider] - Forms: ED Department Discharge - Problem List Review Problem List Initiated/Reviewed/Updated: Yes - My Orders Last 24 Hours: My Active Orders 03/29/17 20:23 Sodium Chloride 0.9% [Saline Flush] 10 ml FLUSH ASDIRECTED PRN Saline Lock Insert [OM.PC] Routine EKG 12 Lead [EK] Routine 03/29/17 20:24 EKG Documentation Completion [RC] ASDIRECTED 03/29/17 20:30 Lactated Ringers [Ringers, Lactated] 1,000 ml IV ASDIRECTED 03/29/17 22:03 Magnesium Sulfate/Water [Magnesium Sulfate 2 GM in Water 50 ML] 2 gm Premix Bag 1 bag IV ONETIME - Assessment/Plan Last 24 Hours: My Active Orders 03/29/17 20:23 Sodium Chloride 0.9% [Saline Flush] 10 ml FLUSH ASDIRECTED PRN Saline Lock Insert [OM.PC] Routine EKG 12 Lead [EK] Routine 03/29/17 20:24 EKG Documentation Completion [RC] ASDIRECTED 03/29/17 20:30 Lactated Ringers [Ringers, Lactated] 1,000 ml IV ASDIRECTED 03/29/17 22:03 Magnesium Sulfate/Water [Magnesium Sulfate 2 GM in Water 50 ML] 2 gm Premix Bag 1 bag IV ONETIME Assessment:: Patient case discussed with Dr. Jesenia Mcintyre, she will be admitted as inpatient for anorexia, dehydration, weakness, edema, nausea, hypomagnesemia. Plan: Patient case discussed with Dr. Jesenia Mcintyre, she will be admitted as inpatient for anorexia, dehydration, weakness, edema, nausea, hypomagnesemia.
[2017-03-29] MEDS ORDERED: Magnesium Sulfate/Water 2 GM in Premix Bag 1 BAG IV ONE (22:03)
[2017-03-29] MEDS ORDERED: Naloxone 0.4 MG/ML SDV IVPUSH PRN (23:20)
[2017-03-29] MEDS ORDERED: HYDROmorphone/Normal Saline 15 MG/30 ML PCA IV PRN (23:20)
[2017-03-29] MEDS ORDERED: Acetaminophen 325 MG Tab PO PRN (23:25)
[2017-03-29] MEDS ORDERED: Magnesium Hydroxide 400 MG/5 ML Susp 30 ML Cup PO PRN (23:26)
[2017-03-29] MEDS ORDERED: Docusate Sodium 100 MG Cap PO PRN (23:27)
[2017-03-29] MEDS ORDERED: Bisacodyl 10 MG Supp RECTAL PRN (23:28)
[2017-03-29] MEDS ORDERED: Aluminum Hydroxide/Magnesium Hydroxide/Simethicone Susp 30 ML Cup PO PRN (23:29)
[2017-03-29] MEDS: Dextrose 5%-Lactated Ringers 1,000 ML IV SCH (23:53)
[2017-03-30] MEDS: LORazepam 2 MG/ML MDV IVPUSH PRN ×3 (00:09→21:33)
[2017-03-30] MEDS: Dextrose 5%-Lactated Ringers 1,000 ML IV SCH ×2 (05:44→13:22)
[2017-03-30] MEDS ORDERED: Naloxone 0.4 MG/ML SDV IVPUSH PRN (07:07)
[2017-03-30] MEDS ORDERED: Pseudoephedrine 30 MG Tab PO PRN (09:00)
[2017-03-30] MEDS ORDERED: DULoxetine 30 MG Cap PO SCH (09:00)
[2017-03-30] MEDS: Magnesium Sulfate/Water 2 GM in Premix Bag 1 BAG IV SCH ×2 (09:55→17:12)
[2017-03-30] MEDS: Pantoprazole 40 MG Vial IVPUSH SCH ×2 (09:58→21:10)
[2017-03-30] MEDS ORDERED: MVI, Adult with Vitamin K 10 ML, Thiamine 100 MG, Magnesium Sulfate 2 GM, Folic Acid 1 ... IV ONE ×5 (10:00)
[2017-03-30] MEDS ORDERED: Bupivacaine 0.5% 50 ML MDV ONE (10:01)
[2017-03-30] MEDS ORDERED: Lidocaine 1% with EPINEPHrine 1:100,000 50 ML MDV ONE (10:01)
[2017-03-30] MEDS ORDERED: Midazolam 1 MG/ML 2 ML SDV ONE (10:17)
[2017-03-30] MEDS ORDERED: fentaNYL 100 MCG/2 ML SDV ONE (10:17)
[2017-03-30] MEDS ORDERED: Propofol 200 MG/20 ML SDV ONE (10:17)
--- NOTE | 2017-03-30 14:25 | CR ---
OR [id number] Filter INDICATION: BANKS CATHETER INSERTION COMPARISON: None FINDINGS: C-arm provided for central venous catheter placement. Tip of the catheter appears to be i n the SVC.
[2017-03-30] MEDS ORDERED: Dextrose 5%-Lactated Ringers 1,000 ML IV SCH (14:30)
[2017-03-30] MEDS: Enoxaparin 40 MG/0.4 ML Syringe SUBCUT SCH ×2 (15:03→15:25)
--- NOTE | 2017-03-30 16:04 | HP ---
CHIEF COMPLAINT: Karishma presented to the clinic. She reports weakness, anorexia, nausea, dry heaves, and she has fallen twice in the past 7 to 8 days. She has had difficulty with dry heaves after eating and she was last seen in the clinic on 03/16/2017. Her weight was 150 and today her weight is 135. She states that since she has had surgery, revision of her Poonam-en-Y five months ago that she has had the nausea, dry heaves, and vomiting. She states she will have one good day, then have several bad days. Mouth was sore and she was unable to eat or drink anything and then she was seen in the clinic and given Diflucan and was treated with Diflucan for 4 days and she presented back to the clinic. She states that she was back to feeling normal, mowed the lawn. Denied any nausea or vomiting, BMs are regular, and her also felt that she was feeling better, did not want to go into the hospital to be started on TPN. She is going on a camping trip. On the camping trip, Karishma did get sick and presented to the emergency room. She was unable to she states get in and out of the camper. She did report confusion, malaise, weakness, and some swelling in her lower extremities. ALLERGIES: IRON WITH VITAMIN C, CELEBREX, FERROUS FUMARATE, SULFA, DIAZEPAM, AND ZOLPIDEM. CURRENT MEDICATIONS: Include hydrocodone acetaminophen/[place] 7.5 mg/325 mg one to two tablets every 4 hours as needed for pain, maximum of 9 tablets per day, pain contract in place, Mag oxide 400 mg daily, B12 1000 mcg per mL solution IM every other week, Zofran ODT 4 mg one tablet every 4 hours p.r.n. nausea, Halcion 0.25 mg one at bedtime, Cymbalta 60 mg one capsule once daily, vitamin D3 2000 international units once a day, multivitamin complete chewable one twice daily, Sudafed 120 mg 12-hour capsules take one by mouth every 12 hours for cold symptoms, Vistaril 25 mg one tablet four times a day p.r.n. itching, Lasix 20 mg once daily p.r.n. swelling, folic acid 400 mcg tablet one time daily, and biotin 1 mg capsule one tablet by mouth once a day. PAST MEDICAL HISTORY: Includes an actinic keratosis, anemia, anxiety, carpal tunnel syndrome, left chronic pain disorder, congenital pigmentary anomaly of the skin, diverticulosis of colon, hyperparathyroidism, spinal cord tumor, abnormal weight loss, and malnutrition. PAST SURGICAL HISTORY: 1. Open Poonam-en-Y gastric bypass surgery in 1988, consult weight 205. 2. Open revision of Poonam-en-Y gastric bypass surgery, 08/31/2014. 3. Exploratory laparotomy with lysis of extension, extensive adhesions with small bowel resection, separate small bowel strictureplasty x2 and placement of Vicryl mesh to displace small bowel from pelvic and abdominal wall to limit recurrent adhesive formation. Date of surgery 09/26/2016. 4. Abdominal exploratory surgery with drainage of infected intraabdominal fluid collection, right organized hematoma, partial removal of degenerating intraperitoneal mesh on 11/20/2016, appendectomy, cholecystectomy, colonoscopy, several EGDs, inguinal hernia repair, lysis of adhesions in 2004 and February, removal of ovary and fallopian tubes on 05/09/2008. REVIEW OF SYSTEMS: CONSTITUTIONAL: No fever, chills, or night sweats. Abnormal weight loss. SKIN: Open sore skin lesions on lower arms bilaterally, they do not heal. HEENT: Denies headache, ear pain, loss of hearing, and blurred vision. CARDIOVASCULAR: No chest pain, fast or irregular heart beat. RESPIRATORY: No cough. ENDOCRINE: No history of polyuria or polydipsia. HEMATOLOGIC: Negative lymph nodes. No lymph node enlargement. GASTROINTESTINAL: States nothing tastes good. She does eat, but only few bites at a time. According to her , has dry heaves. No vomiting. Positive for nausea. Denies any diarrhea or constipation. Has normal bowel movements. No red or black stools. GENITOURINARY: Negative. MUSCULOSKELETAL: Chronic back pain. NEUROLOGICAL: Reports back pain, confusion, difficulty walking, and weakness. PSYCHIATRIC: No depression or anxiety. Remainder of review of systems negative for any pertinent positives and negatives. SOCIAL HISTORY: , does not smoke or drink alcohol, caffeine or recreational drugs. Currently resigned her position of work. FAMILY HISTORY: Noncontributory. PHYSICAL EXAMINATION: GENERAL: Karishma Mcwilliams is a pleasant 51-year-old female, pale. She does have facial swelling. Height is 5 feet 4.96 inches. Weight is 135 pounds. VITAL SIGNS: TPR 95.7, 89, 16, and blood pressure 130/80. HEENT: Pupils are equal, round, and reactive to light and accommodation. SKIN: Color pale. RESPIRATORY: Lungs are clear to auscultation in all four patricio. No wheezing, rales, or rhonchi. HEART: Regular rate and rhythm without murmur, gallop, or rub. ABDOMEN: Soft, nontender. Incisions well healed. EXTREMITIES: Reveal trace edema. SKIN: There are open skin lesions on lower arms bilaterally, they are scabbed, reddened, and acute. NEUROLOGIC: Cranial nerves 2-12 intact. MUSCULOSKELETAL: Deep tendon reflexes are 2+ equal bilaterally. PSYCHIATRIC: Appears fatigued and flat affect. ASSESSMENT: Malnutrition, abnormal weight loss, weakness, nausea, dry heaves, hypomagnesium, status post Poonam-en-Y gastric bypass surgery, status post revision of Poonam-en- Y gastric bypass surgery, chronic pain disorder, pain contract, anxiety, congenital pigmentary anomaly of skin, diverticulosis of colon, hyperparathyroidism, unspecified surgical malabsorption, and B12 deficiency. PLAN: Schedule and have consent signed for EGD with possible dilatation and Schroeder catheter, IV sedation, albumin 50 g IV daily, 1 liter of multivitamin with thiamine given over 2 hours, magnesium 2 g IV q.6 hours x72 hours, SCDs, check CMP, phos, CBC, and BNP in a.m. Cymbalta 60 mg p.o. b.i.d., p.o. Sudafed 120 mg p.o. q.12 hours, Halcion 0.25 mg p.o. at bedtime, Protonix 40 mg IV q.12 hours, and Cymbalta should be once p.o. daily. TPN to be started after the Schroeder catheter is placed. We will evaluate p.r.n. or in a.m. Plan of stay would be 3 nights and 4 days to establish adequate nutritional state. Promise Moran PA-C /[id number]
[2017-03-30] MEDS: 1: AA 5%/Calcium/D15W/Lytes 1,000 ML with MVI, Adult with Vitamin K 10 ML, Chromium/Copp IV SCH ×3 (16:51)
[2017-03-30] MEDS: Fat Emulsion 100 ML IV SCH (17:12)
[2017-03-30] MEDS: Calcium Carbonate 500 MG Tab.Chew PO PRN (23:27)
[2017-03-31] MEDS: Calcium Carbonate 500 MG Tab.Chew PO PRN (01:18)
[2017-03-31] MEDS: Temazepam 15 MG Cap PO PRN ×2 (01:18→21:53)
[2017-03-31] MEDS: Magnesium Sulfate/Water 2 GM in Premix Bag 1 BAG IV SCH ×5 (01:45→21:30)
[2017-03-31] MEDS: 1: AA 5%/Calcium/D15W/Lytes 1,000 ML with MVI, Adult with Vitamin K 10 ML, Chromium/Copp IV SCH ×9 (03:00→23:32)
[2017-03-31] MEDS ORDERED: Dextrose 5%-Lactated Ringers 1,000 ML IV SCH (07:45)
[2017-03-31] MEDS ORDERED: Iohexol 647 MG/ML 50 ML SDV PO SCH (09:30)
[2017-03-31] MEDS: Pantoprazole 40 MG Vial IVPUSH SCH ×2 (10:05→21:30)
[2017-03-31] MEDS: Enoxaparin 40 MG/0.4 ML Syringe SUBCUT SCH (10:05)
[2017-03-31] MEDS: DULoxetine 30 MG Cap PO SCH (10:05)
[2017-03-31] MEDS: Levofloxacin/Dextrose 5%-Water 500 MG in Premix Bag 1 BAG IV SCH (12:21)
[2017-03-31] MEDS: Ondansetron 4 MG/2 ML SDV IVPUSH PRN ×2 (15:17→21:52)
[2017-03-31] MEDS: Fat Emulsion 100 ML IV SCH (16:09)
--- NOTE | 2017-03-31 17:26 | CR ---
UGI w Small Bowel wo Air INDICATION: ?partial SBO COMPARISON: None FINDINGS: Water-soluble upper GI and small bowel follow-through study performed. Swallowing was normal. There was momentary holdup of contrast at the GE junction with intraesophagea l reflux. Gastroesophageal junction eventually opened and contrast passed easily through. Postoperat brandon changes gastric bypass surgery. No evidence of obstruction or extravasation. Contrast was followed through the small bowel with serial images. Contrast is seen in the colon at 2 hours. Few prominent loops of small bowel demonstrated during the study but no definite signs of ob struction. IMPRESSION: Gastric bypass surgery. Momentary holdup at the level of the GE junction but no signs o f obstruction. No signs of small bowel obstruction.
[2017-04-01] MEDS: Magnesium Sulfate/Water 2 GM in Premix Bag 1 BAG IV SCH ×4 (04:05→22:22)
[2017-04-01] MEDS ORDERED: HYDROmorphone 2 MG Tab PO PRN (08:06)
[2017-04-01] MEDS: Levofloxacin/Dextrose 5%-Water 500 MG in Premix Bag 1 BAG IV SCH (08:06)
[2017-04-01] MEDS ORDERED: Ondansetron 4 MG Tab.DIS PO PRN (08:11)
[2017-04-01] MEDS ORDERED: Central Total Parenteral Nutrition Bag SCH (08:15)
--- NOTE | 2017-04-01 08:30 | PN ---
DATE OF SERVICE: 03/31/2017 The patient has been afebrile with stable vital signs. Still fairly weak, but somewhat improved from yesterday. She did eat some yesterday and will obtain an upper GI with small bowel follow-through today to make sure we are not dealing with anymore distal obstructive type effects. Otherwise continue TPN. Her hemoglobin is down to 8.9 after hydration, and we will give her 1 unit of packed RBCs today. Otherwise, continue the TPN and will have Physical Therapy see the patient daily. As discussed with her , this may be a case that needs to be at some point shifted into a rehab facility for a period of time to regain strength and functional status. Her nitrites are positive on the urine and will obtain a C and S. After that is sent, we will give her a course of Levaquin and alter that as needed, based on the C and S results as they become available in 48 hours from now. Theo Mcintyre MD /[id number]
[2017-04-01] MEDS: 1: AA 5%/Calcium/D15W/Lytes 1,000 ML with MVI, Adult with Vitamin K 10 ML, Chromium/Copp IV SCH ×6 (09:33→19:45)
[2017-04-01] MEDS: Enoxaparin 40 MG/0.4 ML Syringe SUBCUT SCH (09:37)
[2017-04-01] MEDS: DULoxetine 30 MG Cap PO SCH (09:37)
[2017-04-01] MEDS: Pantoprazole 40 MG Vial IVPUSH SCH ×2 (09:38→22:23)
--- NOTE | 2017-04-01 09:54 | PN ---
DATE OF SERVICE: 04/01/2017 SUBJECTIVE: Karishma is extremely sleepy this morning. She is not able to answer any questions or converse at all. OBJECTIVE: GENERAL: Karishma is a 51-year-old female. VITAL SIGNS: TPR is 96.8, 104, 16. Blood pressure 146/70. HEART: Regular rate and rhythm. LUNGS: Clear. Shallow respirations. As stated above, unable to wake up and keep awake. ASSESSMENT: 1. Dehydration. 2. Malnutrition. 3. Abnormal weight loss. 4. Weakness. 5. Hypomagnesium. PLAN: 1. Discharge planning to find a rehab facility when discharged. Plan discharge on 04/06/2017. 2. Continue same TPN rate and content. 3. Check CBC, CMP, phos, and BNP in a.m. Dilaudid 1 mg p.o. q.4 hours, discontinue SLAG WHEELER and continuous pulse ox, Zofran 4 mg ODT q.4 hours p.r.n. pain, temazepam, Restoril decrease to 15 mg p.o. at bedtime, discontinue Ativan 0.5 IV. Good pulmonary toilet encouraged. 4. We will evaluate p.r.n. or in a.m. Promise Moran PA-C /[id number]
--- NOTE | 2017-04-01 13:33 | PCM.CONS ---
H&P History of Present Illness - General Date of Service: 04/01/17 Admit Problem/Dx: Admission Diagnosis/Problem Admission Diagnosis/Problem Dehydration Source of Information: RN. No: Patient History Limitations: Reports: Altered Mental Status - History of Present Illness Initial Comments - Free Text/Narative: Karishma was admitted for management of nausea, vomiting and anorexia with weakness. At this point she is unable to answer any of my questions and history is gathered from her and from nursing staff. Her notes that yesterday she was mildly confused and he was wondering about a urinary tract infection. This was diagnosed yesterday and she was started on levofloxacin. He thought she had an okay day yesterday but throughout the evening had a decline in her mental status. She became more lethargic and eventually obtunded overnight. She was very sleepy this morning. As the day has progressed she's a little bit more awake but she is noted to be tremulous and have a spastic type gait. She has become tachycardic with heart rates in the 100s. She is impulsive and not thought to be safe on her feet. I was asked to see her regarding her tremulousness and confusion. lower back Pain Score (Numeric/FACES): 4 - Related Data Allergies/Adverse Reactions: Allergies Allergy/AdvReac Type Severity Reaction Status Date / Time ascorbic acid Allergy Cannot Verified 03/29/17 21:59 [From [employer] Remember (iron-vit c)] celecoxib [From Celebrex] Allergy Hives Verified 03/29/17 21:59 ferrous fumarate Allergy Cannot Verified 03/29/17 21:59 [From [employer] Remember (iron-vit c)] Sulfa (Sulfonamide Allergy Hives Verified 03/29/17 21:59 Antibiotics) sulfadiazine Allergy Hives Verified 03/29/17 21:59 ondansetron AdvReac Redness Verified 04/01/17 04:50 zolpidem AdvReac Insomnia Verified 03/29/17 21:59 Home Medications: Home Meds Triazolam [Halcion] 0.25 mg PO BEDTIME PRN 08/29/14 [History] Biotin 1 mg PO DAILY 09/23/16 [History] Folic Acid 400 mg PO DAILY 09/23/16 [History] Furosemide [Lasix] 20 mg PO DAILY PRN 09/23/16 [History] Pseudoephedrine [Sudafed 12 Hour] 120 mg PO .Q12 PRN 09/23/16 [History] hydrOXYzine HCl [hydrOXYzine] 25 mg PO .Q4 PRN 09/23/16 [History] Hydrocodone/Acetaminophen [Vicodin Es 7.5-300 mg Tablet] 1 - 2 each PO Q4HR PRN #50 tablet 11/26/16 [Rx] DULoxetine [Cymbalta] 60 mg PO BID 03/29/17 [History] Magnesium Oxide 400 mg PO TID 03/29/17 [History] Past Medical History HEENT History: Reports: Impaired Vision Cardiovascular History: Reports: None Respiratory History: Reports: None Gastrointestinal History: Reports: Bowel Obstruction, Cholelithiasis, Chronic Constipation Genitourinary History: Reports: None DIAL PAINTER History: Reports: None Musculoskeletal History: Reports: Arthritis, Back Pain, Chronic, Neck Pain, Chronic Neurological History: Reports: None Other Neuro History: 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 Psychiatric History: Reports: Anxiety, Depression Endocrine/Metabolic History: Reports: Obesity/BMI 30+ Hematologic History: Reports: B12 Deficiency, Blood Transfusion(s), Iron Deficiency Immunologic History: Reports: None Oncologic (Cancer) History: Reports: None Dermatologic History: Reports: Other (See Below) Other Dermatologic History: sores on hands and arms that are slow to heal - Infectious Disease History Infectious Disease History: Reports: None - Past Surgical History Head Surgeries/Procedures: Reports: None HEENT Surgical History: Reports: Oral Surgery Cardiovascular Surgical History: Reports: None Respiratory Surgical History: Reports: None GI Surgical History: Reports: Bariatric Procedure, Cholecystectomy, Colonoscopy , EGD, Hernia Repair/Other, Small Bowel, Other (See Below) Other GI Surgeries/Procedures: mesh rejection from small bowel obstruction, mesh removel and blood clot found Female Surgical History: Reports: Oophorectomy, Tubal Ligation Endocrine Surgical History: Reports: None Neurological Surgical History: Reports: Lumbar Spine, Spinal Fusion, Other (See Below) Other Neurological Surgeries/Procedures: benign spinal tumor removed Musculoskeletal Surgical History: Reports: Shoulder Surgery Oncologic Surgical History: Reports: None Dermatological Surgical History: Reports: None Social & Family History - Family History Family Medical History: Noncontributory - Tobacco Use Smoking Status *Q: Never Smoker Second Hand Smoke Exposure: No - Caffeine Use Caffeine Use: Reports: None - Alcohol Use Days Per Week of Alcohol Use: 0 - Recreational Drug Use Recreational Drug Use: No H&P Review of Systems - Review of Systems: Review Of Systems: Unable To Obtain (Patient too confused to answer questions) Exam - Exam Exam: See Below - Vital Signs Vital Signs: Last Vital Signs Temp 35.5 C 04/01/17 11:31 Pulse 106 H 04/01/17 11:31 Resp 18 04/01/17 11:31 BP 152/62 H 04/01/17 11:31 Pulse Ox 97 04/01/17 11:31 Weight: 67.631 kg - Exam Quality Assessment: No: Supplemental Oxygen General: Alert, Moderate Distress, Lethargic. No: Oriented HEENT: Conjunctiva Clear, Pupils Equal (Dilated). No: Mucosa Moist & [place] (dry) , Scleral Icterus Neck: Supple, Trachea Midline. No: Lymphadenopathy Lungs: Clear to Auscultation, Normal Respiratory Effort Cardiovascular: Regular Rhythm, Tachycardia. No: Systolic Murmur GI/Abdominal Exam: Normal Bowel Sounds, Soft, Non-Tender, No Distention Back Exam: Normal Inspection, Decreased Range of Motion Extremities: Pedal Edema, Other (Swelling of hands). No: Joint Swelling, Increased Warmth Peripheral Pulses: 1+: Dorsalis Pedis (L), Dorsalis Pedis (R) Skin: Warm, Dry. No: Ecchymosis Neuro Extensive - Mental Status: Alert, Slow Response to Commands. No: Oriented x3 Neuro Extensive - Motor, Sensory, Reflexes: Motor/Sensory Deficits, Dysarthria, Abnormal Motor, Tremor, Other (Clonus of both feet) Psychiatric: Alert, Agitated - Patient Data Lab Results Last 24 hrs: Laboratory Results - last 24 hr 03/31/17 04/01/17 04/01/17 Range/Units 05:07 04:30 04:30 WBC 6.4 (4.5-11.0) K/uL RBC 3.17 L (3.30-5.50) M/uL Hgb 10.3 L (12.0-15.0) g/dL Hct 33.1 L (36.0-48.0) % MCV 104 H (80-98) fL MCH 33 H (27-31) pg MCHC 31 L (32-36) % Plt Count 223 (150-400) K/uL Sodium 141 (140-148) mmol/L Potassium 4.5 (3.6-5.2) mmol/L Chloride 105 (100-108) mmol/L Carbon Dioxide 29 (21-32) mmol/L Anion Gap 7.2 (5.0-14.0) mmol/L BUN 5 L (7-18) mg/dL Creatinine 0.6 (0.6-1.0) mg/dL Est Cr Clr Drug Dosing 97.42 mL/min Estimated GFR (MDRD) > 60 (>60) Glucose 122 H (74-106) mg/dL Calcium 7.7 L (8.5-10.1) mg/dL Phosphorus 2.5 (2.5-4.9) mg/dL Total Bilirubin 1.6 H (0.2-1.0) mg/dL AST 25 (15-37) U/L ALT 36 (12-78) U/L Alkaline Phosphatase 73 (46-116) U/L Fzu-R-Euuoqdujayo Pept 1191 H (5-125) pg/mL Total Protein 5.7 L (6.4-8.2) g/dL Albumin 2.7 L (3.4-5.0) g/dL Globulin 3.0 (2.3-3.5) g/dL Albumin/Globulin Ratio 0.9 L (1.2-2.2) Blood Type A POSITIVE Gel Antibody Screen Negative Crossmatch See Detail Result Diagrams: 04/01/17 04:30 04/01/17 04:30 Ezekiel Results Last 24 hrs: Microbiology 03/31/17 10:34 Urine Culture - Preliminary Urine, Clean Catch 03/30/17 12:24 CLOtest - Final Stomach NEGATIVE CLOTEST Imaging Impressions Last 24 hrs: EKG - images personally reviewed - sinus tachycardia with no acute findings Consult PN Assessment/Plan POD#: other Procedures: Procedures CT ABD & PELV W/CONTRAST (09/17/16) (1) Serotonin syndrome SNOMED Code(s): 457835364 Code(s): G25.79 - OTHER DRUG INDUCED MOVEMENT DISORDERS Current Visit: Yes Problem List Initiated/Reviewed/Updated: Yes My Orders Last 24 Hours: My Active Orders 04/01/17 13:29 Cardiac Monitoring [RC] CONTINUOUS 04/01/17 13:30 Transfer Patient (Change bed) [ADT] Routine Overnight Pulse Oximetry [RC] Click to Edit Pulse Oximetry Continuous Monitoring [OM.PC] Routine 04/01/17 13:31 LORazepam [Ativan] 0.5 - 1 mg IVPUSH Q1H PRN 04/01/17 13:32 EKG 12 Lead [EK] Routine 04/01/17 13:33 EKG Documentation Completion [RC] ASDIRECTED 04/02/17 08:00 cefTRIAXone [Rocephin] 1 gm Sodium Chloride 0.9% [Normal Saline] 50 ml IV Q24H Plan: Assessment and plan Suspected serotonin syndrome - patient chronically on duloxetine and has received ondansetron and levofloxacin. She has tachycardia, agitated delirium, spasticity and clonus. She is not safe on her feet at this time and would benefit from closer monitoring. Blood pressures have been stable. -transferred to the intensive care unit -Lorazepam as needed for agitation -Discontinue duloxetine and levofloxacin -Gentle IV fluids -Safe, combing environment Acute cystitis - culture pending but growing a gram-negative luc. -Change antibiotics to ceftriaxone Nausea with vomiting and anorexia -currently receiving TPN. Had been doing better prior to today. -Additional cares per surgical team Kendall Salas M.D. Requesting Provider: Dr. Mcintyre Date Consult Requested: 04/01/17 Reason for Consult: Altered mental status Patient History Reviewed: Yes Admission H&P Reviewed: Yes Notified Requestor: Yes (Suspect serotonin syndrome) Time Spent (in minutes): 60
[2017-04-01] MEDS: Fat Emulsion 100 ML IV SCH (16:07)
[2017-04-01] MEDS ORDERED: HYDROmorphone 1 MG/ML Syringe IVPUSH PRN (17:31)
[2017-04-01] MEDS: HYDROmorphone 1 MG/ML Syringe IVPUSH SCH ×2 (17:40→22:44)
[2017-04-01] MEDS ORDERED: Temazepam 15 MG Cap PO PRN (21:00)
[2017-04-02] MEDS: Magnesium Sulfate/Water 2 GM in Premix Bag 1 BAG IV SCH (03:37)
[2017-04-02] MEDS: 1: AA 5%/Calcium/D15W/Lytes 1,000 ML with MVI, Adult with Vitamin K 10 ML, Chromium/Copp IV SCH ×6 (04:40→14:18)
[2017-04-02] MEDS: HYDROmorphone 1 MG/ML Syringe IVPUSH SCH ×5 (05:25→17:38)
[2017-04-02] MEDS ORDERED: Central Total Parenteral Nutrition Bag SCH (07:30)
[2017-04-02] MEDS: LORazepam 2 MG/ML MDV IVPUSH PRN ×10 (08:43→22:35)
--- NOTE | 2017-04-02 08:50 | PCM.CONSN ---
- General Info Date of Service: 04/02/17 Functional Status: Reports: Pain Controlled - Review of Systems General: Reports: Weakness. Denies: Fever Neurological: Reports: Confusion, Tremors, Other (spasticity ) Systems Review Comment:: no acute events overnight but not much improvement compared to yesterday. She is still mildly agitated and confused. She continues to have clonus which is more impressive in the lower extremities than the arms but this is less intense than yesterday. Heart rate is essentially stable with mild tachycardia. She has not had any fevers. She does not respond to any questions at this time. - Patient Data Vitals - Most Recent: Last Vital Signs Temp 36.6 C 04/02/17 05:48 Pulse 87 04/02/17 05:48 Resp 30 H 04/02/17 05:48 BP 140/90 04/02/17 05:48 Pulse Ox 99 04/02/17 05:48 Weight - Most Recent: 67.676 kg I&O - Last 24 Hours: Intake & Output 04/01/17 04/02/17 04/02/17 22:59 06:59 14:59 Intake Total 1965 1582 Output Total 1600 Balance 1964 - Lab Results Last 24 Hours: Laboratory Results - last 24 hr 04/02/17 04/02/17 04/02/17 Range/Units 04:20 04:20 04:20 WBC 6.3 (4.5-11.0) K/uL RBC 3.25 L (3.30-5.50) M/uL Hgb 10.7 L (12.0-15.0) g/dL Hct 33.7 L (36.0-48.0) % MCV 104 H (80-98) fL MCH 33 H (27-31) pg MCHC 32 (32-36) % Plt Count 217 (150-400) K/uL Sodium 142 (140-148) mmol/L Potassium 4.2 (3.6-5.2) mmol/L Chloride 107 (100-108) mmol/L Carbon Dioxide 25 (21-32) mmol/L Anion Gap 10.1 (5.0-14.0) mmol/L BUN 8 D (7-18) mg/dL Creatinine 0.6 (0.6-1.0) mg/dL Est Cr Clr Drug Dosing 97.42 mL/min Estimated GFR (MDRD) > 60 (>60) Glucose 146 H (74-106) mg/dL Calcium 8.4 L (8.5-10.1) mg/dL Phosphorus 2.5 (2.5-4.9) mg/dL Total Bilirubin 1.5 H (0.2-1.0) mg/dL AST 30 (15-37) U/L ALT 33 (12-78) U/L Alkaline Phosphatase 62 (46-116) U/L Cax-H-Yyyapqoduoz Pept 1619 H (5-125) pg/mL Total Protein 6.4 (6.4-8.2) g/dL Albumin 3.2 L (3.4-5.0) g/dL Globulin 3.2 (2.3-3.5) g/dL Albumin/Globulin Ratio 1.0 L (1.2-2.2) Ezekiel Results Last 24 Hours: Microbiology 03/31/17 10:34 Urine Culture - Final Urine, Clean Catch Escherichia Coli Med Orders - Current: Current Medications Acetaminophen (Tylenol) 650 mg PO Q4H PRN PRN Reason: Pain Al Hydroxide/Mg Hydroxide (Mag-Al Plus) 30 ml PO Q4H PRN PRN Reason: Dyspepsia Bisacodyl (Dulcolax) 10 mg RECTAL DAILY PRN PRN Reason: Constipation Calcium Carbonate/Glycine (Tums) 500 - 1,000 mg PO Q2H PRN PRN Reason: Indigestion Last Admin: 03/31/17 01:18 Dose: 1,000 mg Docusate Sodium (Colace) 100 mg PO DAILY PRN PRN Reason: Constipation Enoxaparin Sodium (Lovenox) 40 mg SUBCUT DAILY [facility] Last Admin: 04/01/17 09:37 Dose: 40 mg Hydromorphone HCl (Dilaudid) 1 mg PO Q4H PRN PRN Reason: Pain Hydromorphone HCl (Dilaudid) 0.5 mg IVPUSH Q2H PRN PRN Reason: Pain Hydromorphone HCl (Dilaudid) 0.5 mg IVPUSH Q4H [facility] Last Admin: 04/02/17 06:09 Dose: Not Given Albumin Human (Albumin 25%) 25 gm in 100 mls @ 25 mls/hr IV Q24H [facility] Stop: 04/05/17 12:59 Last Admin: 04/01/17 09:30 Dose: 25 mls/hr Albumin Human (Albumin 25%) 25 gm in 100 mls @ 25 mls/hr IV Q24H [facility] Stop: 04/05/17 16:59 Last Admin: 04/01/17 14:21 Dose: 25 mls/hr Multivitamins/Minerals 10 ml/Chromium/Copper/Manganese/Seleni/Zn 1 ml/ Amino Ac/ Electrol/Dextrose/Calcium 1,011 mls @ 100 mls/hr IV .BY DURATION [facility] Last Admin: 04/01/17 19:45 Dose: 100 mls/hr Amino Ac/Electrol/Dextrose/Calcium (Clinimix E 15) 1,000 mls @ 100 mls/hr IV .BY DURATION [facility] Last Admin: 04/02/17 04:40 Dose: 100 mls/hr Fat Emulsion Intravenous (Intralipid 20%) 100 mls @ 10 mls/hr IV Q24H [facility] Last Admin: 04/01/17 16:07 Dose: 8.3 mls/hr Dextrose/Lactated Ringer's (Dextrose 5%-Lactated Ringers) 1,000 mls @ 25 mls/ hr IV ASDIRECTED [facility] Ceftriaxone Sodium 1 gm/ (Sodium Chloride) 50 mls @ 100 mls/hr IV Q24H [facility] Lorazepam (Ativan) 0.5 - 1 mg IVPUSH Q1H PRN PRN Reason: Agitation Last Admin: 04/02/17 08:43 Dose: 1 mg Magnesium Hydroxide (Milk Of Magnesia) 30 ml PO BID PRN PRN Reason: Constipation Naloxone HCl (Narcan) 0.1 mg IVPUSH Q2M PRN PRN Reason: Respiratory Distress Non-Formulary Medication (Total Parenteral Nutrition, Central) 1,000 ml .XX .Continue Order [facility] Stop: 04/02/17 16:00 Ondansetron HCl (Zofran Odt) 4 mg PO Q4H PRN PRN Reason: Nausea/Vomiting Pantoprazole Sodium (Protonix Iv) 40 mg IVPUSH Q12H [facility] Last Admin: 04/01/17 22:23 Dose: 40 mg Pseudoephedrine HCl (Sudogest) 60 mg PO Q6H PRN PRN Reason: Other Last Admin: 03/30/17 15:31 Dose: 60 mg Sodium Chloride (Saline Flush) 10 ml FLUSH ASDIRECTED PRN PRN Reason: Keep Vein Open Last Admin: 03/29/17 21:34 Dose: 10 ml Discontinued Medications Bupivacaine HCl (Marcaine 0.5%) Confirm Administered Dose 50 ml .ROUTE .STK-MED ONE Stop: 03/30/17 10:02 Last Admin: 03/30/17 12:45 Dose: 10 ml Duloxetine HCl (Cymbalta) 60 mg PO BID [facility] Last Admin: 03/30/17 09:58 Dose: Not Given Duloxetine HCl (Cymbalta) 60 mg PO DAILY [facility] Last Admin: 04/01/17 09:37 Dose: 60 mg Fentanyl (Sublimaze) Confirm Administered Dose 100 mcg .ROUTE .STK-MED ONE Stop: 03/30/17 10:18 Heparin Sodium (Porcine) (Heparin Lock Flush 100 Units/Ml) Confirm Administered Dose 1,500 units .ROUTE .STK-MED ONE Stop: 03/30/17 10:02 Last Admin: 03/30/17 12:42 Dose: 1,500 units Hydromorphone HCl (Dilaudid [employer] 15 Mg In Ns 30 Ml) 0 mg IV ASDIRECTED PRN; Protocol PRN Reason: Pain Last Admin: 03/29/17 23:53 Dose: 15 mg Lactated Ringer's (Ringers, Lactated) 1,000 mls @ 500 mls/hr IV ASDIRECTED [facility] Last Admin: 03/29/17 21:34 Dose: 500 mls/hr Magnesium Sulfate 2 gm/ Premix 50 mls @ 12.5 mls/hr IV ONETIME ONE Stop: 03/30/17 02:02 Last Admin: 03/29/17 22:25 Dose: 12.5 mls/hr Dextrose/Lactated Ringer's (Dextrose 5%-Lactated Ringers) 1,000 mls @ 175 mls/ hr IV ASDIRECTED [facility] Last Admin: 03/30/17 13:22 Dose: 40 mls/hr Multivitamins/Minerals 10 ml/Thiamine HCl 100 mg/ Magnesium Sulfate 2 gm/ Folic Acid 1 mg / Lactated Ringer's 1,015.2 mls @ 200 mls/hr IV ONETIME ONE Stop: 03/30/17 15:04 Last Admin: 03/30/17 09:56 Dose: 200 mls/hr Magnesium Sulfate 2 gm/ Premix 50 mls @ 25 mls/hr IV Q6HR [facility] Stop: 04/02/17 05:59 Last Admin: 04/02/17 03:37 Dose: 25 mls/hr Dextrose/Lactated Ringer's (Dextrose 5%-Lactated Ringers) 1,000 mls @ 40 mls/ hr IV ASDIRECTED [facility] Last Admin: 03/31/17 04:50 Dose: 40 mls/hr Levofloxacin/Dextrose 500 mg/ (Premix) 100 mls @ 100 mls/hr IV DAILY [facility] Stop: 04/04/17 09:59 Last Admin: 04/01/17 08:06 Dose: 100 mls/hr Iohexol (Omnipaque-300) 100 ml PO .ASDIRECTED [facility] Stop: 03/31/17 23:00 Last Admin: 03/31/17 09:24 Dose: 100 ml Lidocaine/Epinephrine (Xylocaine 1% With Epinephrine 1:100,000) Confirm Administered Dose 50 ml .ROUTE .STK-MED ONE Stop: 03/30/17 10:02 Last Admin: 03/30/17 12:45 Dose: 10 ml Lorazepam (Ativan) 0.5 mg IVPUSH Q8H PRN PRN Reason: Anxiety Last Admin: 03/30/17 21:33 Dose: 0.5 mg Midazolam HCl (Versed 1 Mg/Ml) Confirm Administered Dose 2 mg .ROUTE .STK-MED ONE Stop: 03/30/17 10:18 Naloxone HCl (Narcan) 0.4 mg IVPUSH Q2M PRN PRN Reason: Respiratory Distress Non-Formulary Medication (Total Parenteral Nutrition, Central) 1,000 ml .XX .Continue Order [facility] Stop: 04/01/17 16:00 Ondansetron HCl (Zofran) 4 mg IVPUSH Q6H PRN PRN Reason: Nausea/Vomiting Last Admin: 03/31/17 21:52 Dose: 4 mg Propofol (Diprivan 20 Ml) Confirm Administered Dose 200 mg .ROUTE .STK-MED ONE Stop: 03/30/17 10:18 Temazepam (Restoril) 30 mg PO BEDTIME PRN PRN Reason: INSOMNIA Last Admin: 03/31/17 21:53 Dose: 30 mg Temazepam (Restoril) 15 mg PO BEDTIME PRN PRN Reason: INSOMNIA - Exam Quality Assessment: No: Supplemental Oxygen General: Moderate Distress. No: Alert HEENT: Pupils Equal. No: Mucous Membr. Moist/[place] (dry) Neck: Supple, Trachea Midline Lungs: Clear to Auscultation, Normal Respiratory Effort Cardiovascular: Regular Rate, Regular Rhythm GI/Abdominal Exam: Normal Bowel Sounds, Soft, No Distention Extremities: Pedal Edema (mild ankle edema), Other (swelling of both hands) Skin: Warm, Dry Neurological: Reflexes Equal Bilateral (hyper-reflexic ), Other (bilateral clonus (improved from yesterday)) Psy/Mental Status: Anxious. No: Agitated Consult PN Assessment/Plan Procedures: Procedures CT ABD & PELV W/CONTRAST (09/17/16) (1) Serotonin syndrome SNOMED Code(s): 298253050 Code(s): G25.79 - OTHER DRUG INDUCED MOVEMENT DISORDERS Current Visit: Yes Problem List Initiated/Reviewed/Updated: Yes My Orders Last 24 Hours: My Active Orders 04/01/17 13:29 Cardiac Monitoring [RC] CONTINUOUS 04/01/17 13:30 Transfer Patient (Change bed) [ADT] Routine Overnight Pulse Oximetry [RC] Click to Edit Pulse Oximetry Continuous Monitoring [OM.PC] Routine 04/01/17 13:31 LORazepam [Ativan] 0.5 - 1 mg IVPUSH Q1H PRN 04/01/17 13:32 EKG 12 Lead [EK] Routine 04/01/17 17:31 HYDROmorphone [Dilaudid] 0.5 mg IVPUSH Q2H PRN 04/01/17 18:00 HYDROmorphone [Dilaudid] 0.5 mg IVPUSH Q4H 04/01/17 20:24 Urinary Catheter Assessment [RC] ASDIRECTED 04/01/17 20:30 Insert Wallace Catheter [Insert Urinary Catheter] [OM.PC] Q24H 04/02/17 08:00 cefTRIAXone [Rocephin] 1 gm Sodium Chloride 0.9% [Normal Saline] 50 ml IV Q24H 04/02/17 08:48 Head wo Cont [CT] Routine Plan: Assessment and plan Suspected serotonin syndrome - patient chronically on duloxetine and has received ondansetron and levofloxacin. She has tachycardia, agitated delirium, spasticity and clonus. clonus is less intense today than yesterday but has not resolved. Still has agitated delirium. Vital signs essentially stable. No fevers. Head CT was unremarkable. -cardiac monitoring -Lorazepam as needed for agitation -Discontinue duloxetine and levofloxacin -Gentle IV fluids -Safe, calming environment Acute cystitis - pansensitive Escherichia coli, changed to ceftriaxone. -Change antibiotics to ceftriaxone Nausea with vomiting and anorexia -currently receiving TPN. Had been doing better prior to today. -Additional cares per surgical team Kendall Salas M.D.
[2017-04-02] MEDS: Enoxaparin 40 MG/0.4 ML Syringe SUBCUT SCH (10:02)
[2017-04-02] MEDS: cefTRIAXone 1 GM in Sodium Chloride 0.9% 50 ML IV SCH (10:03)
[2017-04-02] MEDS: Pantoprazole 40 MG Vial IVPUSH SCH (10:03)
--- NOTE | 2017-04-02 10:27 | PN ---
DATE OF SERVICE: 04/02/2017 SUBJECTIVE: Karishma Mcwilliams was down to ICU because she continued to show a decline in mental status. She was diagnosed by Kendall Salas MD with serotonin syndrome. Vital signs have otherwise been stable. She seems a little bit more awake this morning. REVIEW OF SYSTEMS: Remainder of review of systems negative for any pertinent positives and negatives. OBJECTIVE: GENERAL: Karishma Mcwilliams is a 51-year-old female. Color pale. Face appears edematous. VITAL SIGNS: TPR is 97.9, 87, and 30. Blood pressure 140/90. HEENT: Negative. NECK: Supple. HEART: Regular rate and rhythm. LUNGS: Clear. ABDOMEN: Soft and nontender. EXTREMITIES: Without peripheral edema. ASSESSMENT: 1. Serotonin syndrome. 2. Dehydration, malnutrition, abnormal weight loss, weakness, and hypomagnesium. PLAN: Continue same TPN rate and content. Check CBC, CMP, phos, and BNP in a.m. Promise Moran PA-C /[id number]
--- NOTE | 2017-04-02 11:26 | CT ---
Head wo Cont INDICATION: agitated delirium, spasticity TECHNIQUE: CT images of the head obtained without IV contrast. DLP: 681 mGycm COMPARISON: None FINDINGS: No acute intracranial abnormality. No hemorrhage, edema or mass effect. The ventricles a re normal size. Skull intact. Visualized paranasal sinuses clear. IMPRESSION:Negative exam.
[2017-04-02] MEDS ORDERED: Lanolin/Mineral Oil/Petrolatum Ophth Oint 3.5 GM Tube EYEBOTH PRN (13:30)
[2017-04-02] MEDS: Hypromellose 0.4% Ophth Soln 15 ML Bottle EYEBOTH PRN ×3 (13:54→20:25)
[2017-04-02] MEDS: Fat Emulsion 100 ML IV SCH (16:56)
[2017-04-02] MEDS ORDERED: Albuterol 0.083% 2.5 MG/3 ML Neb Soln NEB PRN (21:55)
[2017-04-02] MEDS ORDERED: Furosemide 20 MG/2 ML VIAL IVPUSH ONE (22:24)
[2017-04-02] MEDS ORDERED: Heparin Sodium 5,000 Units/ML Vial ONE (23:44)
[2017-04-02] MEDS ORDERED: LORAZEPAM IV SCH ×2 (23:45)
[2017-04-02] MEDS ORDERED: DEXTROSE 5% IV SCH ×2 (23:45)
[2017-04-02] MEDS ORDERED: WATER IV SCH ×2 (23:45)
[2017-04-02] MEDS ORDERED: Heparin Sodium 5,000 UNITS in Sodium Chloride 0.9% 500 ML IV SCH (23:45)
[2017-04-03] MEDS ORDERED: Propofol 200 MG/20 ML SDV ONE (00:37)
[2017-04-03] MEDS ORDERED: Succinylcholine 200 MG/10 ML MDV ONE (00:37)
[2017-04-03] MEDS: LORazepam 2 MG/ML MDV IVPUSH PRN ×4 (00:44→09:38)
[2017-04-03] MEDS ORDERED: Sodium Chloride 0.9% 1,000 ML IV SCH ×2 (01:00→01:15)
[2017-04-03] MEDS: Hypromellose 0.4% Ophth Soln 15 ML Bottle EYEBOTH PRN (03:08)
[2017-04-03] MEDS ORDERED: Doxycycline 100 MG in Sodium Chloride 0.9% 100 ML IV SCH (05:00)
[2017-04-03] MEDS ORDERED: Central Total Parenteral Nutrition Bag SCH (07:15)
[2017-04-03] MEDS: Pantoprazole 40 MG Vial IVPUSH SCH (07:22)
[2017-04-03] MEDS: HYDROmorphone 1 MG/ML Syringe IVPUSH SCH (07:23)
[2017-04-03] MEDS ORDERED: Potassium Chloride 40 MEQ in Premix Bag 1 BAG IV ONE (08:00)
[2017-04-03] MEDS: cefTRIAXone 1 GM in Sodium Chloride 0.9% 50 ML IV SCH (08:08)
--- NOTE | 2017-04-03 08:42 | CR ---
Chest 1V Frontal INDICATION: change in status COMPARISON: None FINDINGS: Single AP portable view of the chest. Elevated right hemidiaphragm. Left subclavian central line with tip in the mid SVC. Heart size griselda l. No infiltrates or pleural effusions. Postop change upper abdomen. IMPRESSION: Elevated right hemidiaphragm. Otherwise nothing acute in the chest.
[2017-04-03] MEDS ORDERED: Sodium Chloride 0.9% 500 ML IV ONE (08:45)
--- NOTE | 2017-04-03 08:52 | CR ---
Chest 1V Frontal INDICATION: intubation COMPARISON: 04/02/2017 FINDINGS: Single AP portable chest. ET tube now in place in good position in the mid trachea. Left subclavian central line remains in pl [place]. Elevated right hemidiaphragm unchanged. Heart size normal. No new infiltrates or pleural effusi ons. No signs of pulmonary edema. IMPRESSION: ET tube in good position. Otherwise no change in the chest since exam previous day.
[2017-04-03] MEDS: Enoxaparin 40 MG/0.4 ML Syringe SUBCUT SCH (09:19)
[2017-04-03] MEDS ORDERED: Ampicillin/Sulbactam Na 3 GM in Sodium Chloride 0.9% 100 ML IV ONE (09:20)
[2017-04-03] MEDS: 1: AA 5%/Calcium/D15W/Lytes 1,000 ML with MVI, Adult with Vitamin K 10 ML, Chromium/Copp IV SCH ×3 (09:20)
--- NOTE | 2017-04-03 09:25 | PCM.DCSUM1 ---
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 - Discharge Data Discharge Date: 04/03/17 Discharge Disposition: DC/Tfer to Acute Hospital 02 Condition: Critical - Discharge Diagnosis/Problem(s) (1) Serotonin syndrome SNOMED Code(s): 547509274 ICD Code: G25.79 - OTHER DRUG INDUCED MOVEMENT DISORDERS Status: Acute Current Visit: Yes (2) Acute respiratory failure with hypoxia SNOMED Code(s): 90705272, 178338569 ICD Code: J96.01 - ACUTE RESPIRATORY FAILURE WITH HYPOXIA Status: Acute Current Visit: Yes (3) Aspiration pneumonia SNOMED Code(s): 383722893 ICD Code: J69.0 - PNEUMONITIS DUE TO INHALATION OF FOOD AND VOMIT Status: Acute Current Visit: Yes Qualifiers: Aspiration pneumonia type: unspecified Laterality: unspecified laterality Lung location: unspecified part of lung Qualified Code(s): J69.0 - Pneumonitis due to inhalation of food and vomit - Patient Summary/Data Operative Procedure(s) Performed: Schroeder catheter placement. EGD Consults: Consultations 03/31/17 07:19 PT Evaluation and Treatment [CONS] Routine Please Evaluate and Treat. PT Reason for Consult: weakness This query below is only for informational purposes and is not editable. Admission Diagnosis/Problem: Dehydration 04/01/17 08:05 Consult to Case Management [CONS] Routine Comment: Physician Instructions: Quantity: Reason for Consult: Rehab Facility when discharged-possible 04/06/17 04/01/17 12:50 Consult to Physician [CONS] Routine Consulting Provider: Kendall Salas Call Completed to Consulting Physician: Yes Reason for Consult: altered mental status, weakness, jerks/muscle twitches. Person Notified: Dr. Salas Date Notified: 04/01/17 Time Notified: 12:51 Labs Pending at D/C: final results of sputum culture - Moderate GPC and few GNR seen on gram stain Hospital Course: Karishma presented to the emergency room on March 29 with several weeks of progressive nausea with dry heaves as well as anorexia and weight loss. Workup in the emergency room revealed significant dehydration and malnutrition. She was admitted to the hospital with the plan for optimization of her nutritional status. The morning after admission to Schroeder catheter was placed so TPN could be administered. She also had an EGD at the time which did not show any acute findings. On March 31 a urine sample was obtained and did suggest infection so a culture was sent and the patient was empirically started on levofloxacin. TPN was continued and electrolytes were optimized. To this point patient had been stable. On the morning of April 01 she was noted to be very somnolent and a variety of her sedating medications were held. I was consult later in the morning with altered mental status being the chief concern. When I evaluated her she was in an agitated delirium. She had significant muscle spasms that were diffuse. She had bilateral clonus involving both arms and legs with legs involved more extensively. She had ocular clonus. All of these signs were thought to be consistent with serotonin syndrome. She is on Cymbalta and had been receiving levofloxacin, ondansetron, hydromorphone as well as doses of fentanyl. She was transferred to the intensive care unit and all of the potential offending medications were discontinued. She was started on lorazepam for sedation. Over the next 24 hours things were relatively stable. I did discuss the case with poison control and they recommended continued supportive cares. They did not feel that things were severe enough to need cyproheptadine at this point. Her clonus was improving throughout the course of the day. On the morning of April 03 things are stable though not dramatically improved. She continues to have a mildly increased respiratory rate and mild tachycardia. Laboratory studies are essentially unremarkable other than a mild decrease in her hemoglobin. Her urine culture did return growing Escherichia coli sensitive to all antibiotics other than ampicillin and ampicillin/sulbactam. Elected to transition antibiotics to ceftriaxone at this point. She was stable throughout the day though not making a dramatic clinical improvement. We did notice continued improvement in her clonus and muscle spasticity. Her ocular clonus seem to have resolved. We did get a head CT in the morning on April 02 that was unremarkable. Despite multiple fairly large (2-4 mg) IV push doses of lorazepam she continues to have an elevated respiratory rate. Overnight April 02 and April 03 we had a fairly abrupt decline in her respiratory status. Rhonchorous breath sounds were noted and she had a sudden oxygen requirement. There was concern for aspiration. Given her difficulty with protecting her airway and mild progression and hemodynamic instability with hypertension and worsening tachycardia we elected to intubate her. She is placed on SIMV and sedation with a lorazepam infusion was initiated. He also used as needed lorazepam to help with breakthrough agitation. She appears relatively comfortable but continues to have a respiratory rate in the 30s. Antibiotics were broadened to include ceftriaxone and doxycycline. A sputum culture obtained after intubation revealed moderate gram-positive cocci and a few gram-negative rods. Arterial blood gases obtained at the time of admission showed a normal pH and a very mild respiratory alkalosis. Chest x-ray showed a right gricelda-diaphragm elevation but no other acute findings. The right hemidiaphragm elevation is known and is unchanged. Repeat x-ray after intubation revealed similar changes. Repeat blood gases several hours after intubation revealed progression of her respiratory alkalosis with the CO2 down around 19 and a pH of 7.5. We increased sedation over the next few hours but did not make any improvements in the respiratory rate. At this point with concern for serotonin syndrome though I suspect this is improving now complicated by aspiration I reached out to in [place]. I was able to speak with Dr. Dorman and he was agreeable to accept her care and transfer. We did administer a 3 g dose of Unasyn prior to transfer to help provide anaerobic coverage. I believe she is safe for transfer at this point and the benefits of transfer far outweigh the risk at this point. - Patient Instructions Diet: NPO Activity: Bedrest Other/Special Instructions: 1. Transfer to [facility] - Dr Dorman accepting - Discharge Plan Home Medications: Home Meds Triazolam [Halcion] 0.25 mg PO BEDTIME PRN 08/29/14 [History] Biotin 1 mg PO DAILY 09/23/16 [History] Folic Acid 400 mg PO DAILY 09/23/16 [History] Furosemide [Lasix] 20 mg PO DAILY PRN 09/23/16 [History] Pseudoephedrine [Sudafed 12 Hour] 120 mg PO .Q12 PRN 09/23/16 [History] hydrOXYzine HCl [hydrOXYzine] 25 mg PO .Q4 PRN 09/23/16 [History] Hydrocodone/Acetaminophen [Vicodin Es 7.5-300 mg Tablet] 1 - 2 each PO Q4HR PRN #50 tablet 11/26/16 [Rx] DULoxetine [Cymbalta] 60 mg PO BID 03/29/17 [History] Magnesium Oxide 400 mg PO TID 03/29/17 [History] Referrals: Yusuf Casper MD [Primary Care Provider] - - Patient Data Vitals - Most Recent: Last Vital Signs Temp 38.2 C H 04/03/17 08:13 Pulse 136 H 04/03/17 08:00 Resp 30 H 04/03/17 08:00 BP 146/77 H 04/03/17 08:00 Pulse Ox 98 04/03/17 08:00 Weight - Most Recent: 68.4 kg I&O - Last 24 hours: Intake & Output 04/02/17 04/03/17 04/03/17 22:59 06:59 14:59 Intake Total 1707 1611 Output Total 950 1580 Balance 757 31 Lab Results - Last 24 hrs: Laboratory Results - last 24 hr 04/02/17 04/03/17 04/03/17 Range/Units 17:45 00:42 04:00 WBC 15.7 H (4.5-11.0) K/uL RBC 3.48 (3.30-5.50) M/uL Hgb 11.4 L (12.0-15.0) g/dL Hct 35.7 L (36.0-48.0) % MCV 103 H (80-98) fL MCH 33 H (27-31) pg MCHC 32 (32-36) % Plt Count 229 (150-400) K/uL Puncture Site A-line ABG pH 7.389 (7.350-7.450) ABG pCO2 32.5 L (35.0-42.0) mmHg ABG pO2 120.0 H (75.0-100.0) mmHg ABG HCO3 19.2 L (22.0-26.0) mmol/L ABG Total CO2 17.5 L (21.0-25.0) mmol/L ABG O2 Saturation 97.3 (95.0-98.0) % ABG O2 Content 15.7 (15.0-23.0) %vol ABG Base Excess -4.5 mm/L ABG Hemoglobin 11.5 L (12.0-16.0) g/dL ABG Oxyhemoglobin 95.7 % ABG Carboxyhemoglobin 0.5 (0.0-1.6) % ABG Methemoglobin 1.1 % Ziyad Test Not performed O2 Delivery Device Ventilator Oxygen Flow Rate L Sodium (140-148) mmol/L Potassium (3.6-5.2) mmol/L Chloride (100-108) mmol/L Carbon Dioxide (21-32) mmol/L Anion Gap (5.0-14.0) mmol/L BUN (7-18) mg/dL Creatinine (0.6-1.0) mg/dL Est Cr Clr Drug Dosing mL/min Estimated GFR (MDRD) (>60) Glucose (74-106) mg/dL Calcium (8.5-10.1) mg/dL Phosphorus (2.5-4.9) mg/dL Total Bilirubin (0.2-1.0) mg/dL AST (15-37) U/L ALT (12-78) U/L Alkaline Phosphatase (46-116) U/L Xaw-J-Ebskjrikcpu Pept (5-125) pg/mL Total Protein (6.4-8.2) g/dL Albumin (3.4-5.0) g/dL Globulin (2.3-3.5) g/dL Albumin/Globulin Ratio (1.2-2.2) Salicylates < 0.2 L (2.0-20.0) mg/dL 04/03/17 04/03/17 04/03/17 Range/Units 04:00 04:00 08:50 WBC (4.5-11.0) K/uL RBC (3.30-5.50) M/uL Hgb (12.0-15.0) g/dL Hct (36.0-48.0) % MCV (80-98) fL MCH (27-31) pg MCHC (32-36) % Plt Count (150-400) K/uL Puncture Site A-line Line ABG pH 7.522 H 7.552 H (7.350-7.450) ABG pCO2 19.6 L* 18.7 L* (35.0-42.0) mmHg ABG pO2 124.0 H 113.0 H (75.0-100.0) mmHg ABG HCO3 16.0 L 16.4 L (22.0-26.0) mmol/L ABG Total CO2 14.2 L 14.5 L (21.0-25.0) mmol/L ABG O2 Saturation 98.3 H 98.2 H (95.0-98.0) % ABG O2 Content 15.8 15.9 (15.0-23.0) %vol ABG Base Excess -5.0 -4.0 mm/L ABG Hemoglobin 11.5 L 11.6 L (12.0-16.0) g/dL ABG Oxyhemoglobin 96.5 96.2 % ABG Carboxyhemoglobin 0.7 0.8 (0.0-1.6) % ABG Methemoglobin 1.1 1.2 % Ziyad Test Not performed Line O2 Delivery Device Ventilator Ventilator Oxygen Flow Rate L Sodium 143 (140-148) mmol/L Potassium 3.5 L (3.6-5.2) mmol/L Chloride 107 (100-108) mmol/L Carbon Dioxide 19 L (21-32) mmol/L Anion Gap 20.5 H (5.0-14.0) mmol/L BUN 13 D (7-18) mg/dL Creatinine 0.6 (0.6-1.0) mg/dL Est Cr Clr Drug Dosing 97.42 mL/min Estimated GFR (MDRD) > 60 (>60) Glucose 119 H (74-106) mg/dL Calcium 8.7 (8.5-10.1) mg/dL Phosphorus 3.6 (2.5-4.9) mg/dL Total Bilirubin 1.6 H (0.2-1.0) mg/dL AST 32 (15-37) U/L ALT 33 (12-78) U/L Alkaline Phosphatase 44 L (46-116) U/L Ebt-H-Fqvldxfwzgd Pept 2660 H (5-125) pg/mL Total Protein 7.2 (6.4-8.2) g/dL Albumin 3.6 (3.4-5.0) g/dL Globulin 3.6 H (2.3-3.5) g/dL Albumin/Globulin Ratio 1.0 L (1.2-2.2) Salicylates (2.0-20.0) mg/dL ROCHELLE Results - Last 24 hrs: Microbiology 04/03/17 03:13 Gram Stain - Final Tracheal Aspirate 03/31/17 10:34 Urine Culture - Final Urine, Clean Catch Escherichia Coli Med Orders - Current: Current Medications Acetaminophen (Tylenol) 650 mg PO Q4H PRN PRN Reason: Pain Albuterol (Proventil Neb Soln) 2.5 mg NEB Q4H PRN PRN Reason: Shortness of Breath Last Admin: 04/02/17 21:55 Dose: 2.5 mg Artificial Tears (Natural Balance Tears) 0 ml EYEBOTH ASDIRECTED PRN PRN Reason: DRY EYES Last Admin: 04/03/17 03:08 Dose: 1 drop Bisacodyl (Dulcolax) 10 mg RECTAL DAILY PRN PRN Reason: Constipation Calcium Carbonate/Glycine (Tums) 500 - 1,000 mg PO Q2H PRN PRN Reason: Indigestion Last Admin: 03/31/17 01:18 Dose: 1,000 mg Enoxaparin Sodium (Lovenox) 40 mg SUBCUT DAILY DANUTA Last Admin: 04/03/17 09:19 Dose: 40 mg Ceftriaxone Sodium 1 gm/ (Sodium Chloride) 50 mls @ 100 mls/hr IV Q24H [facility] Last Admin: 04/03/17 08:08 Dose: 100 mls/hr Lorazepam 40 mg/ Dextrose/ (Water) 120 mls @ 3 mls/hr IV TITRATE DANUTA; 1 MG/HR PRN Reason: Protocol Stop: 04/03/17 09:59 Last Titration: 04/03/17 07:21 Dose: 4 mg/hr, 12 mls/hr Heparin Sodium (Porcine) 5,000 (units/ Sodium Chloride) 501 mls @ 1 mls/hr IV ASDIRECTED DANUTA Last Admin: 04/03/17 01:06 Dose: 1 mls/hr Sodium Chloride (Normal Saline) 1,000 mls @ 100 mls/hr IV ASDIRECTED DANUTA Last Admin: 04/03/17 01:08 Dose: 100 mls/hr Doxycycline Hyclate 100 mg/ (Sodium Chloride) 100 mls @ 100 mls/hr IV Q12H DANUTA Last Admin: 04/03/17 05:35 Dose: 100 mls/hr Potassium Chloride 40 meq/ (Premix) 100 mls @ 25 mls/hr IV ONETIME ONE Stop: 04/03/17 11:59 Last Admin: 04/03/17 09:03 Dose: 25 mls/hr Lorazepam 20 mg/ Dextrose/ (Water) 100 mls @ 5 mls/hr IV TITRATE DANUTA; 1 MG/HR PRN Reason: Protocol Ampicillin Sodium/Sulbactam (Sodium 3 gm/ Sodium Chloride) 100 mls @ 200 mls/ hr IV ONETIME ONE Stop: 04/03/17 09:49 Last Admin: 04/03/17 09:19 Dose: 200 mls/hr Lorazepam (Ativan) 2 - 4 mg IVPUSH Q1H PRN PRN Reason: Agitation Last Admin: 04/03/17 04:36 Dose: 4 mg Magnesium Hydroxide (Milk Of Magnesia) 30 ml PO BID PRN PRN Reason: Constipation Naloxone HCl (Narcan) 0.1 mg IVPUSH Q2M PRN PRN Reason: Respiratory Distress Ondansetron HCl (Zofran Odt) 4 mg PO Q4H PRN PRN Reason: Nausea/Vomiting Sodium Chloride (Saline Flush) 10 ml FLUSH ASDIRECTED PRN PRN Reason: Keep Vein Open Last Admin: 03/29/17 21:34 Dose: 10 ml Discontinued Medications Al Hydroxide/Mg Hydroxide (Mag-Al Plus) 30 ml PO Q4H PRN PRN Reason: Dyspepsia Bupivacaine HCl (Marcaine 0.5%) Confirm Administered Dose 50 ml .ROUTE .STK-MED ONE Stop: 03/30/17 10:02 Last Admin: 03/30/17 12:45 Dose: 10 ml Diazepam (Valium) 10 mg IVPUSH ONETIME ONE Stop: 04/03/17 05:01 Last Admin: 04/03/17 05:35 Dose: 10 mg Docusate Sodium (Colace) 100 mg PO DAILY PRN PRN Reason: Constipation Duloxetine HCl (Cymbalta) 60 mg PO BID DANUTA Last Admin: 03/30/17 09:58 Dose: Not Given Duloxetine HCl (Cymbalta) 60 mg PO DAILY DANUTA Last Admin: 04/01/17 09:37 Dose: 60 mg Fentanyl (Sublimaze) Confirm Administered Dose 100 mcg .ROUTE .STK-MED ONE Stop: 03/30/17 10:18 Furosemide (Lasix) 20 mg IVPUSH NOW ONE Stop: 04/02/17 22:25 Last Admin: 04/02/17 22:35 Dose: 20 mg Heparin Sodium (Porcine) (Heparin Lock Flush 100 Units/Ml) Confirm Administered Dose 1,500 units .ROUTE .STK-MED ONE Stop: 03/30/17 10:02 Last Admin: 03/30/17 12:42 Dose: 1,500 units Heparin Sodium (Porcine) (Heparin Sodium) Confirm Administered Dose 5,000 units .ROUTE .STK-MED ONE Stop: 04/02/17 23:45 Last Admin: 04/03/17 00:47 Dose: Not Given Hydromorphone HCl (Dilaudid Emergency Room Clinician 15 Mg In Ns 30 Ml) 0 mg IV ASDIRECTED PRN; Protocol PRN Reason: Pain Last Admin: 03/29/17 23:53 Dose: 15 mg Hydromorphone HCl (Dilaudid) 1 mg PO Q4H PRN PRN Reason: Pain Hydromorphone HCl (Dilaudid) 0.5 mg IVPUSH Q2H PRN PRN Reason: Pain Last Admin: 04/02/17 20:19 Dose: 0.5 mg Hydromorphone HCl (Dilaudid) 0.5 mg IVPUSH Q4H [facility] Last Admin: 04/03/17 07:23 Dose: Not Given Lactated Ringer's (Ringers, Lactated) 1,000 mls @ 500 mls/hr IV ASDIRECTED [facility] Last Admin: 03/29/17 21:34 Dose: 500 mls/hr Magnesium Sulfate 2 gm/ Premix 50 mls @ 12.5 mls/hr IV ONETIME ONE Stop: 03/30/17 02:02 Last Admin: 03/29/17 22:25 Dose: 12.5 mls/hr Dextrose/Lactated Ringer's (Dextrose 5%-Lactated Ringers) 1,000 mls @ 175 mls/ hr IV ASDIRECTED [facility] Last Admin: 03/30/17 13:22 Dose: 40 mls/hr Albumin Human (Albumin 25%) 25 gm in 100 mls @ 25 mls/hr IV Q24H [facility] Stop: 04/05/17 12:59 Last Admin: 04/02/17 09:52 Dose: 25 mls/hr Albumin Human (Albumin 25%) 25 gm in 100 mls @ 25 mls/hr IV Q24H [facility] Stop: 04/05/17 16:59 Last Admin: 04/02/17 12:49 Dose: 25 mls/hr Multivitamins/Minerals 10 ml/Thiamine HCl 100 mg/ Magnesium Sulfate 2 gm/ Folic Acid 1 mg / Lactated Ringer's 1,015.2 mls @ 200 mls/hr IV ONETIME ONE Stop: 03/30/17 15:04 Last Admin: 03/30/17 09:56 Dose: 200 mls/hr Magnesium Sulfate 2 gm/ Premix 50 mls @ 25 mls/hr IV Q6HR [facility] Stop: 04/02/17 05:59 Last Admin: 04/02/17 03:37 Dose: 25 mls/hr Dextrose/Lactated Ringer's (Dextrose 5%-Lactated Ringers) 1,000 mls @ 40 mls/ hr IV ASDIRECTED [facility] Last Admin: 03/31/17 04:50 Dose: 40 mls/hr Multivitamins/Minerals 10 ml/Chromium/Copper/Manganese/Seleni/Zn 1 ml/ Amino Ac/ Electrol/Dextrose/Calcium 1,011 mls @ 100 mls/hr IV .BY DURATION [facility] Last Admin: 04/01/17 19:45 Dose: 100 mls/hr Amino Ac/Electrol/Dextrose/Calcium (Clinimix E 12/29) 1,000 mls @ 100 mls/hr IV .BY DURATION [facility] Last Admin: 04/02/17 14:18 Dose: 100 mls/hr Fat Emulsion Intravenous (Intralipid 20%) 100 mls @ 10 mls/hr IV Q24H [facility] Last Admin: 04/02/17 16:56 Dose: 8.3 mls/hr Dextrose/Lactated Ringer's (Dextrose 5%-Lactated Ringers) 1,000 mls @ 75 mls/ hr IV ASDIRECTED [facility] Last Admin: 04/02/17 22:40 Dose: 75 mls/hr Levofloxacin/Dextrose 500 mg/ (Premix) 100 mls @ 100 mls/hr IV DAILY [facility] Stop: 04/04/17 09:59 Last Admin: 04/01/17 08:06 Dose: 100 mls/hr Sodium Chloride (Normal Saline) 1,000 mls @ 500 mls/hr IV ASDIRECTED [facility] Stop: 04/03/17 03:16 Last Admin: 04/03/17 01:16 Dose: 500 mls/hr Sodium Chloride (Normal Saline) 500 mls @ 999 mls/hr IV ASDIRECTED ONE Stop: 04/03/17 09:15 Last Admin: 04/03/17 09:19 Dose: 999 mls/hr Iohexol (Omnipaque-300) 100 ml PO .ASDIRECTED DANUTA Stop: 03/31/17 23:00 Last Admin: 03/31/17 09:24 Dose: 100 ml Lidocaine/Epinephrine (Xylocaine 1% With Epinephrine 1:100,000) Confirm Administered Dose 50 ml .ROUTE .STK-MED ONE Stop: 03/30/17 10:02 Last Admin: 03/30/17 12:45 Dose: 10 ml Lorazepam (Ativan) 0.5 mg IVPUSH Q8H PRN PRN Reason: Anxiety Last Admin: 03/30/17 21:33 Dose: 0.5 mg Lorazepam (Ativan) 0.5 - 1 mg IVPUSH Q1H PRN PRN Reason: Agitation Last Admin: 04/02/17 12:43 Dose: 1 mg Midazolam HCl (Versed 1 Mg/Ml) Confirm Administered Dose 2 mg .ROUTE .STK-MED ONE Stop: 03/30/17 10:18 Naloxone HCl (Narcan) 0.4 mg IVPUSH Q2M PRN PRN Reason: Respiratory Distress Non-Formulary Medication (Total Parenteral Nutrition, Central) 1,000 ml .XX .Continue Order [facility] Stop: 04/01/17 16:00 Non-Formulary Medication (Total Parenteral Nutrition, Central) 1,000 ml .XX .Continue Order [facility] Stop: 04/02/17 16:00 Ondansetron HCl (Zofran) 4 mg IVPUSH Q6H PRN PRN Reason: Nausea/Vomiting Last Admin: 03/31/17 21:52 Dose: 4 mg Pantoprazole Sodium (Protonix Iv) 40 mg IVPUSH Q12H [facility] Last Admin: 04/03/17 07:22 Dose: Not Given Propofol (Diprivan 20 Ml) Confirm Administered Dose 200 mg .ROUTE .STK-MED ONE Stop: 03/30/17 10:18 Propofol (Diprivan 20 Ml) Confirm Administered Dose 200 mg .ROUTE .STK-MED ONE Stop: 04/03/17 00:38 Pseudoephedrine HCl (Sudogest) 60 mg PO Q6H PRN PRN Reason: Other Last Admin: 03/30/17 15:31 Dose: 60 mg Succinylcholine Chloride (Quelicin) Confirm Administered Dose 200 mg .ROUTE .STK -MED ONE Stop: 04/03/17 00:38 Temazepam (Restoril) 30 mg PO BEDTIME PRN PRN Reason: INSOMNIA Last Admin: 03/31/17 21:53 Dose: 30 mg Temazepam (Restoril) 15 mg PO BEDTIME PRN PRN Reason: INSOMNIA *Q Meaningful Use (DIS) - VTE *Q VTE Criteria *Q: - Stroke *Q Stroke Criteria *Q: - AMI *Q AMI Criteria *Q:
[2017-04-03] MEDS ORDERED: LORazepam 20 MG in Dextrose 5% in Water 90 ML IV SCH ×2 (10:00)
[2017-04-03 10:05] VITALS: BP 160/90
--- NOTE | 2017-04-03 10:39 | ANES ---
DATE OF SERVICE: 04/03/2017 Karishma is a 51-year-old female, patient of Theo Mcintyre and Kendall Salas is covering in the ICU, #[id number]. I was requested late this evening to come in and assess the patient for intubation due to respiratory failure. Upon arrival, I found an unresponsive malnourished female. I discussed with Dr. Salas her medications as well as allergies and most recent history and found no contraindication to propofol or succinylcholine for intubation if needed. The patient was hyperventilated with high percentage of oxygen. I orally suctioned her prior to starting the procedure noting that she had no gag. I placed the laryngeal scope without any sedation or relaxation and found no gag reflex. Copious amounts of white and frothy sputum were suctioned in a posterior oropharynx as well as out of her trachea around the vocal cords. #8 endotracheal tube was placed without difficulty, cuff was inflated, bilateral breath sounds were noted, maintained oxygen saturations in the 90% range. Vitals were unchanged throughout the procedure. Please refer to nurse's notes for those values. Please refer to Dr. Mcintyre's note as well as Dr. Salas note for diagnosis prior to the procedure. Upon completion, I then endotracheally suctioned her for the same frothy white sputum. My attention was then turned to the left radial arterial line, was prepped with a sterile mini-prep. Sterile gloves were placed and easily cannulated the left radial artery within a good blood flow. Tubing was secured and the arterial line was sutured to her left wrist and secured with tape and Tegaderm. She tolerated both procedures quite well. Again maintained vitals prior to procedure levels and reported off to nurse as well as Dr. Salas the procedures that I completed. Josef Rosa CRNA /[id number]
--- NOTE | 2017-04-07 21:52 | OR ---
DATE OF PROCEDURE: 03/30/2017 PREOPERATIVE DIAGNOSES: 1. Nausea and vomiting status post Poonam-en-Y gastric bypass. 2. Indications for central venous access. OPERATIVE PROCEDURES: 1. Upper GI endoscopy with biopsies of gastric pouch for CLOtest. 2. Insertion of double-lumen Schroeder catheter via left subclavian vein approach. ANESTHESIA: Local plus IV sedation. INDICATION FOR PROCEDURE: This is a 51-year-old status post previous Poonam-en-Y gastric bypass, presenting with worsening nausea, vomiting, and generally poor oral intake along with fairly profound malnutrition. Plan is to proceed with an upper GI endoscopy with biopsies and/or dilation as indicated, along with insertion of a double-lumen Schroeder catheter to initiate IV hyperalimentation. Potential risks of procedure including bleeding and perforation, injury to the vasculature or lung during the central line insertion were reviewed, and the patient wishes to proceed. DETAILS OF PROCEDURE: The patient was taken to the operating room and placed, initially in left lateral decubitus position. IV sedation was administered, after which the upper GI endoscope was passed orally through the length of the esophagus, through the gastric pouch, jejunostomy roughly 30 cm into the Poonam limb. Overall, the findings were entirely normal. There were no areas of inflammation, narrowing, or stricturing during the course of the procedure and certainly not anything clearly evident to call for the patient's symptoms. Biopsies were obtained from the gastric pouch and sent for CLOtest to establish the patient's H. pylori status. Minimal bleeding from the biopsy site was seen and the procedure was then concluded. The patient was now placed in a supine position and the upper chest and neck areas were prepped and draped. The left subclavian area was anesthetized with 1% lidocaine and left subclavian vein cannulated, guidewire passed from there, guidewire manipulated into the superior vena cava. An additional incision, roughly, handsbreadths below the original puncture site was then made, and the Schroeder catheter was then tunneled between those 2 points with the cuff being positioned just underneath the lower incision skin. The Schroeder catheter was cut such that the tip would lie in the upper right atrium and it was positioned there with the introducer and peel-away catheter without difficulty. Good in and outflow was noted, and both ports were flushed with heparinized saline once again. Incision was closed at the original puncture site with a 4-0 Vicryl subcuticular stitch and Steri-Strips, and the skin exit site, it was affixed to the catheter with a 3-0 nylon stitch. There were no evident complications. The patient was taken to the recovery room in a satisfactory condition. Theo Mcintyre MD /[id number]
== END 2017-04-03 10:42 | DRG 640 ==
LOC: JP.ED 18:46 → JP.2SS 22:48 → JP.ICU 04-01 13:29
PROVIDERS: ADMIT Surgery; ATTEND Surgery
PROC: 0DB68ZX Excision of Stomach, Via Natural or Artificial Opening Endoscopic, Diagnostic (ICD-10-PCS; principal; 2017-03-30)
PROC: B518ZZA Fluoroscopy of Superior Vena Cava, Guidance (ICD-10-PCS; principal; 2017-03-30)
PROC: 02HV33Z Insertion of Infusion Device into Superior Vena Cava, Percutaneous Approach (ICD-10-PCS; principal; 2017-03-30)
PROC: 30233N1 Transfusion of Nonautologous Red Blood Cells into Peripheral Vein, Percutaneous Approach (ICD-10-PCS; 2017-03-31)
PROC: 03HC33Z Insertion of Infusion Device into Left Radial Artery, Percutaneous Approach (ICD-10-PCS; 2017-04-03)
PROC: 0BH17EZ Insertion of Endotracheal Airway into Trachea, Via Natural or Artificial Opening (ICD-10-PCS; 2017-04-03)
DX: E46 Unspecified protein-calorie malnutrition (principal); J96.01 Acute respiratory failure with hypoxia; J69.0 Pneumonitis due to inhalation of food and vomit; N30.00 Acute cystitis without hematuria; E87.3 Alkalosis; K91.2 Postsurgical malabsorption, not elsewhere classified; G25.79 Other drug induced movement disorders; E86.0 Dehydration; Z68.22 Body mass index [BMI] 22.0-22.9, adult; R41.0 Disorientation, unspecified; B96.20 Unspecified Escherichia coli [E. coli] as the cause of diseases classified elsewhere; R53.1 Weakness; E53.8 Deficiency of other specified B group vitamins; Z98.1 Arthrodesis status; M54.9 Dorsalgia, unspecified; G89.29 Other chronic pain; H54.7 Unspecified visual loss; M19.90 Unspecified osteoarthritis, unspecified site; F41.9 Anxiety disorder, unspecified; F32.9 Major depressive disorder, single episode, unspecified; Z98.84 Bariatric surgery status; Z98.0 Intestinal bypass and anastomosis status; Z88.2 Allergy status to sulfonamides; Z88.8 Allergy status to other drugs, medicaments and biological substances; E83.42 Hypomagnesemia; T43.215A Adverse effect of selective serotonin and norepinephrine reuptake inhibitors, initial encounter; T36.8X5A Adverse effect of other systemic antibiotics, initial encounter; T45.0X5A Adverse effect of antiallergic and antiemetic drugs, initial encounter; T40.2X5A Adverse effect of other opioids, initial encounter; T40.4X5A Adverse effect of other synthetic narcotics, initial encounter
CPT/HCPCS: 31500; 36415; 36430; 70450; 70450-26; 71010; 71010-26; 74245; 74245-26; 80053; 81001; 82803; 83735; 83880; 84100; 84443; 85025; 85027; 86850; 86900; 86901; 86920; 86922; 87070; 87081; 87086; 87088; 87186; 87205; 93005; 94002; 94762; 96361; 96365; 99285-25; A9270-GY; C9113; G0480; J0295; J0330; J0696; J1170; J1642; J1644; J1650; J1940; J1956; J2060; J2250; J2405; J2704; J3010; J3360; J3411; J3475; J3480; J3490; J7030; J7040; J7042; J7050; J7060; J7120; P9016; P9047; Q9967